=== PATIENT | female | born 1950 | race African-American/Black ===

== ENCOUNTER → 2017-03-05 | Outpatient (CLI) | payer MEDICARE, MEDICAID ==
[2017-03-05 10:56] LABS: ABSOLUTE EOSINOPHILS # (AUTO) 0.1 10^3/uL (0.0-0.6); ABSOLUTE LYMPHOCYTES (AUTO) 1.4 10^3/uL (0.5-4.7); ABSOLUTE MONOCYTES (AUTO) 0.5 10^3/uL (0.1-1.4); BASOPHILS % (AUTO) 0.7 % (0-2); EOSINOPHILS % (AUTO) 2.6 % (0-6); HEMATOCRIT 37.6 % (36.0-47.0); HEMOGLOBIN 11.9 g/dL (12.0-15.5); HGB HCT DIFFERENCE -1.9; LYMPHOCYTES % (AUTO) 28.2 % (13-45); MEAN CORPUSCULAR HEMOGLOBIN 25.4 pg (27.0-33.4); MEAN CORPUSCULAR HGB CONC 31.7 g/dL (32.0-36.0); MEAN CORPUSCULAR VOLUME 80 fl (80-97); MONOCYTES % (AUTO) 9.4 % (3-13); RED BLOOD COUNT 4.68 10^6/uL (3.72-5.28); RED CELL DISTRIBUTION WIDTH 16.7 % (11.5-14.0); SEGMENTED NEUTROPHILS % (AUTO) 59.1 % (42-78); WHITE BLOOD COUNT 5.1 10^3/uL (4.0-10.5)
[2017-03-05 11:16] LABS: ALANINE AMINOTRANSFERASE 33 U/L (9-52); ALBUMIN 3.8 g/dL (3.5-5.0); ALKALINE PHOSPHATASE 82 U/L (38-126); ANION GAP 12 (5-19); ASPARTATE AMINO TRANSFERASE 18 U/L (14-36); BILIRUBIN,DIRECT 0.2 mg/dL (0.0-0.4); BILIRUBIN,TOTAL 0.5 mg/dL (0.2-1.3); BLOOD UREA NITROGEN 22 mg/dL (7-20); CALCIUM 9.5 mg/dL (8.4-10.2); CARBON DIOXIDE 30 mmol/L (22-30); CHLORIDE 103 mmol/L (98-107); CHOLESTEROL 144.36 mg/dL (0-200); CREATININE RESULT 1.19 mg/dL (0.52-1.25); Direct HDL 42 mg/dL (>40); GLUCOSE 106 mg/dL (75-110); MAGNESIUM 2.1 mg/dL (1.6-2.3); POTASSIUM 4.3 mmol/L (3.6-5.0); SODIUM 145.2 mmol/L (137-145); TOTAL PROTEIN 6.8 g/dL (6.3-8.2); TRIGLYCERIDES 88 mg/dL (<150); URIC ACID 7.2 mg/dL (2.5-7.5)
[2017-03-05 11:26] LABS: DIRECT LDL 58 mg/dL (<100)
[2017-03-05 11:31] LABS: FREE T3 3.74 pg/mL (2.77-5.27)
[2017-03-05 11:45] LABS: THYROID STIMULATING HORMONE 1.02 uIU/mL (0.47-4.68)
== END ==
LOC: OD 09:45
PROVIDERS: ATTEND Internal Medicine
DX: R53.82 Chronic fatigue, unspecified (principal); R73.9 Hyperglycemia, unspecified; M10.9 Gout, unspecified; E78.5 Hyperlipidemia, unspecified; G47.33 Obstructive sleep apnea (adult) (pediatric); I12.9 Hypertensive chronic kidney disease with stage 1 through stage 4 chronic kidney disease, or unspecified chronic kidney disease; N18.2 Chronic kidney disease, stage 2 (mild)
CPT/HCPCS: 36415; 80053; 80061; 83036; 83525; 83735; 84439; 84443; 84481; 84550; 85025

== ENCOUNTER → 2017-05-26 | Outpatient (CLI) | payer MEDICARE, MEDICAID ==
[2017-05-26 10:42] LABS: ABSOLUTE BASOPHILS # (AUTO) 0.1 10^3/uL (0.0-0.2); ABSOLUTE EOSINOPHILS # (AUTO) 0.1 10^3/uL (0.0-0.6); ABSOLUTE LYMPHOCYTES (AUTO) 1.4 10^3/uL (0.5-4.7); ABSOLUTE MONOCYTES (AUTO) 0.4 10^3/uL (0.1-1.4); ABSOLUTE NEUT (AUTO) 3.5 10^3/uL (1.7-8.2); EOSINOPHILS % (AUTO) 1.5 % (0-6); HEMATOCRIT 38.1 % (36.0-47.0); HEMOGLOBIN 12.1 g/dL (12.0-15.5); HGB HCT DIFFERENCE -1.8; LYMPHOCYTES % (AUTO) 25.3 % (13-45); MEAN CORPUSCULAR HEMOGLOBIN 25.4 pg (27.0-33.4); MEAN CORPUSCULAR HGB CONC 31.7 g/dL (32.0-36.0); MEAN CORPUSCULAR VOLUME 80 fl (80-97); RED BLOOD COUNT 4.75 10^6/uL (3.72-5.28); RED CELL DISTRIBUTION WIDTH 16.2 % (11.5-14.0); SEGMENTED NEUTROPHILS % (AUTO) 65.2 % (42-78); WHITE BLOOD COUNT 5.4 10^3/uL (4.0-10.5)
[2017-05-26 11:20] LABS: ANION GAP 9 (5-19); BLOOD UREA NITROGEN 21 mg/dL (7-20); CALCIUM 9.4 mg/dL (8.4-10.2); CARBON DIOXIDE 31 mmol/L (22-30); CHLORIDE 103 mmol/L (98-107); CREATININE RESULT 1.11 mg/dL (0.52-1.25); GLUCOSE 102 mg/dL (75-110); POTASSIUM 4.4 mmol/L (3.6-5.0); SODIUM 142.8 mmol/L (137-145)
== END ==
LOC: OD 09:39
PROVIDERS: ATTEND Family Medicine Geriatric Medicine
DX: D64.9 Anemia, unspecified (principal); N18.3 Chronic kidney disease, stage 3 (moderate); Z79.899 Other long term (current) drug therapy
CPT/HCPCS: 36415; 80048; 82306; 82728; 83540; 83550; 84466; 85025

== ENCOUNTER → 2017-07-30 | Outpatient (CLI) | payer MEDICARE, MEDICAID ==
[2017-07-30 12:12] LABS: MAGNESIUM 2.1 mg/dL (1.6-2.3); POTASSIUM 4.4 mmol/L (3.6-5.0)
[2017-07-31 14:41] LABS: HGB A 97.9 % (94.0-98.0); HGB A2 2.1 % (0.7-3.1); HGB SOLUBILITY RESULT Negative (Negative)
== END ==
LOC: OD 10:52
PROVIDERS: ATTEND Family Medicine Geriatric Medicine
DX: D64.9 Anemia, unspecified (principal); E87.6 Hypokalemia; R25.2 Cramp and spasm; Z79.899 Other long term (current) drug therapy
CPT/HCPCS: 36415; 83020; 83735; 84132

== ENCOUNTER → 2017-10-14 | Outpatient (CLI) | payer MEDICARE, MEDICAID ==
--- NOTE | 2017-10-14 17:36 | WOMENS IMAGING REPORT ---
EXAM DESCRIPTION: BILAT SCREENING MAMMO W/CAD COMPLETED DATE/TIME: 10/14/2017 10:59 am REASON FOR STUDY: ROUTINE SCREENING; Z12.31 Z12.31 ENCNTR SCREEN MAMMOGRAM FOR MALIGNANT NEOPLASM O F NHUNG COMPARISON: Multiple since 2010 TECHNIQUE: Standard craniocaudal and mediolateral oblique views of each breast recorded using RRsata l acquisition. LIMITATIONS: None. FINDINGS: RIGHT BREAST MASSES: In the right breast lower inner quadrant 5 to 6 o'clock position 10 cm from the nipple, there are 2 mammographic nodules which require further evaluation with cone compression view, 90 mediolat eral view and ultrasound. CALCIFICATIONS: No new or suspicious calcifications. ARCHITECTURAL DISTORTION: None. DEVELOPING DENSITY: None. ASYMMETRY: None noted. OTHER: No other significant findings. LEFT BREAST MASSES: In the left breast lower inner quadrant, 7 to 8 o'clock position 12 cm from the nipple, a 1 c m mammographic nodule is present with slightly lobular borders. This requires further evaluation wit h cone compression views, 90 mediolateral view and ultrasound CALCIFICATIONS: No new or suspicious calcifications. ARCHITECTURAL DISTORTION: None. DEVELOPING DENSITY: None. ASYMMETRY: None noted. OTHER: No other significant findings. Read with the assistance of CAD. .[facility] - R2 Cenova Version 1.3 .[facility] - R2 Cenova Version 1.3 .[facility] - R2 Cenova Version 2.4 .[facility] [place] - R2 Cenova Version 2.4 .[facility] - R2 Promotion Manager Version 9.2 IMPRESSION: Bilateral mammographic nodules which require further evaluation with bilateral diagnosti c mammograms and bilateral breast ultrasound BREAST DENSITY: b. There are scattered areas of fibroglandular density. BIRAD: 0 Incomplete: Needs Additional Imaging Evaluation and/or prior Mammograms for Comparison. RECOMMENDATION: RECOMMENDED FOLLOW-UP: Bilateral diagnostic mammograms, bilateral breast ultrasound The patient will be contacted for additional imaging. COMMENT: The patient has been notified of the results by letter per SA requirements. Additional no tification policies are in place for contacting patient with suspicious or incomplete findings. Quality ID #225: The [employer] recommends an annual screening mammogram for women aged 40 years or over. This facility utilizes a reminder system to ensure that all patients receive reminder letters, and/or direct phone calls for appointments. This includes reminders for routine scr eening mammograms, diagnostic mammograms, or other Breast Imaging Interventions when appropriate. Th is patient will be placed in the appropriate reminder system. The [employer] (ACR) has developed recommendations for screening MRI of the breast s in certain patient populations, to be used in conjunction with mammography. Breast MRI surveillanc e may be appropriate for women with more than 20% lifetime risk of developing breast cancer as deter mined by genetic testing, significant family history of the disease, or history of mantle radiation f or Hodgkins Disease. ACR Practice Guidelines 2008. TECHNICAL DOCUMENTATION: FINDING NUMBER: (1) ASSESSMENT: (1) JOB ID: [id number] [employer]- All Rights Reserved
== END ==
LOC: WI 10:48
PROVIDERS: ATTEND Family Medicine Geriatric Medicine
DX: Z12.31 Encounter for screening mammogram for malignant neoplasm of breast (principal)
CPT/HCPCS: 77067; G0202

== ENCOUNTER → 2017-11-05 | Outpatient (CLI) | payer MEDICARE, MEDICAID ==
--- NOTE | 2017-11-05 17:48 | WOMENS IMAGING REPORT ---
EXAM DESCRIPTION: BILAT DIAGNOSTIC MAMMO W/CAD; U/S BREAST UNILAT LIMITED COMPLETED DATE/TIME: 11/05/2017 11:42 am; 11/05/2017 1:40 pm REASON FOR STUDY: UNSPECIFIED LUMP; N63.14, N63.24; BILATERAL; N63.14; N63.24 N63.14 UNSPECIFIED LOUANN MP IN THE RIGHT BREAST, LOWER INNER MONIKA; Z12.31 ENCNTR SCREEN MAMMOGRAM FOR MALIGNANT NEOPLASM OF BR E N63.24 UNSPECIFIED LUMP IN THE LEFT BREAST, LOWER INNER QUAD COMPARISON: Multiple previous since 2010 TECHNIQUE: Bilateral cone compression craniocaudal and mediolateral oblique views of each breast rec orded using digital acquisition. Bilateral 90 mediolateral view, bilateral repeat CC views Bilateral breast ultrasound was also performed LIMITATIONS: None. FINDINGS: RIGHT BREAST MASSES: In the right breast 6 o'clock position, a 1.5 cm well-circumscribed low-density nodule presen t about 9 cm from the nipple. This was subsequently shown to represent a simple breast. A second, smaller nodule is present at the 6 o'clock position about 5 cm from the nipple, measuring a bout 1 cm in size. This was shown to represent a complex lesion at ultrasound, and ultrasound-guided core biopsy of this nodule is recommended. CALCIFICATIONS: No new or suspicious calcifications. ARCHITECTURAL DISTORTION: None. DEVELOPING DENSITY: None. ASYMMETRY: None noted. OTHER: No other significant findings. LEFT BREAST MASSES: In the medial left breast about the 8 to 9 o'clock position, 2 mammographic nodules are prese nt, measuring 14 mm and 8 mm in size. These were subsequently demonstrated to be solid nodules at ul trasound. Ultrasound-guided core biopsy of these nodules is recommended. In the left breast retroareolar 6 o'clock position, a dumbbell-shaped nodule is present measuring 14 x 8 mm in size, about 3 cm from the nipple. This was shown to represent a solid nodule and ultrasoun d. Ultrasound-guided core biopsy of this nodule is recommended. CALCIFICATIONS: No new or suspicious calcifications. ARCHITECTURAL DISTORTION: None. DEVELOPING DENSITY: None. ASYMMETRY: None noted. OTHER: No other significant finding. Read with the assistance of CAD: .[facility] - R2 Cenova Version 1.3 .[facility] Imaging - R2 Cenova Version 1.3 .[facility] Imaging - R2 Cenova Version 2.4 .[facility] - R2 Cenova Version 2.4 .[facility] - R2 Beef Killer Version 9.2 Right breast ultrasound: 1.5 cm simple cyst right breast 6 o'clock position 9 cm from the nipple. No further follow-up. There is a 1 cm solid nodule in the right breast 6 o'clock position, 5 cm from the nipple. This conn ects to a dilated duct. Ultrasound-guided core biopsy of this nodule is recommended. Left breast ultrasound: In the medial left breast about the 8 to 9 o'clock position there are two solid sonographic nodules, 14 mm in diameter and 8 mm in diameter. Ultrasound-guided core biopsy of these nodules is recommende d. In the left retro areolar region, a dumbbell-shaped 14 x 8 mm nodule is present at the 6 o'clock posi tion. This has internal color flow. Ultrasound-guided core biopsy of this nodule is recommended. IMPRESSION: Bilateral solid breast nodules which require further evaluation with ultrasound-guided c ore biopsy, post biopsy clip placement and follow-up two-view mammogram. This procedure can be perfo rmed at [facility]. BREAST DENSITY: b. There are scattered areas of fibroglandular density. BIRAD: 4 Suspicious. Biopsy should be considered. RECOMMENDATION: RECOMMENDED FOLLOW UP: Bilateral ultrasound-guided core biopsy, post biopsy clip akua cement with follow-up two-view mammogram is recommended. SPECIFIC INTERVENTION/IMAGING/CONSULTATION RECOMMENDED:As above COMMUNICATION:These results were not directly discussed with the patient. Patient notified by letter COMMENT: The patient has been notified of the results by letter per SA requirements. Additional no tification policies are in place for contacting patient with suspicious or incomplete findings. Quality ID #225: The [employer] recommends an annual screening mammogram for women aged 40 years or over. This facility utilizes a reminder system to ensure that all patients receive reminder letters, and/or direct phone calls for appointments. This includes reminders for routine scr eening mammograms, diagnostic mammograms, or other Breast Imaging Interventions when appropriate. Th is patient will be placed in the appropriate reminder system. The [employer] (ACR) has developed recommendations for screening MRI of the breast s in certain patient populations, to be used in conjunction with mammography. Breast MRI surveillanc e may be appropriate for women with more than 20% lifetime risk of developing breast cancer as deter mined by genetic testing, significant family history of the disease, or history of mantle radiation f or Hodgkins Disease. ACR Practice Guidelines 2008. TECHNICAL DOCUMENTATION: FINDING NUMBER: (1) ASSESSMENT: (1) JOB ID: [id number] [employer]- All Rights Reserved
== END ==
LOC: WI 11:10
PROVIDERS: ATTEND Family Medicine Geriatric Medicine
DX: N63.14 Unspecified lump in the right breast, lower inner quadrant (principal); N63.24 Unspecified lump in the left breast, lower inner quadrant
CPT/HCPCS: 77066

== ENCOUNTER → 2017-12-29 | Outpatient (CLI) | payer MEDICARE, MEDICAID ==
[2017-12-30 13:52] LABS: ANGIOTENSIN-CONVERTING ENZYME 37 U/L (14-82)
== END ==
LOC: OD 11:05
PROVIDERS: ATTEND Ophthalmology
DX: H47.10 Unspecified papilledema (principal)
CPT/HCPCS: 36415; 82164; 86038; 86480; 86592

== ENCOUNTER → 2017-12-30 | Day surgery (SDC) | payer MEDICARE, MEDICAID ==
[~2017-12-30] MED LIST: ACETAMINOPHEN 0 ML IV ONE; ALBUTEROL SULFATE 0.083% NEB 2.5 MG/3 ML AMPUL NEB ONE; CEFAZOLIN 1 GM/D5W RTU 1 GM/50 ML RTUPB IV PRN; FENTANYL CITRATE INJ/PF 100 MCG/2 ML AMPUL ONE; KETAMINE HCL INJ 500 MG/10 ML VIAL ONE; LIDOCAINE 1%/EPINEPHRINE INJ 20 ML VIAL ONE; MICROFIBRILLAR COLLAGEN 1 GM PACK ONE; MIDAZOLAM 2 MG/2 ML INJ ONE; NORMAL SALINE 1000 ML 1,000 ML IV PRN; PROPOFOL INJ 200 MG/20 ML VIAL IV ONE
[2017-12-30 08:18] LABS: HEMOGLOBIN 12.2 g/dL (12.0-15.5); MEAN CORPUSCULAR HEMOGLOBIN 25.2 pg (27.0-33.4); MEAN CORPUSCULAR HGB CONC 31.3 g/dL (32.0-36.0); MEAN CORPUSCULAR VOLUME 81 fl (80-97); PLATELET COUNT 193 10^3/uL (150-450); RED BLOOD COUNT 4.84 10^6/uL (3.72-5.28); RED CELL DISTRIBUTION WIDTH 16.4 % (11.5-14.0); WHITE BLOOD COUNT 5.3 10^3/uL (4.0-10.5)
[2017-12-30 08:46] LABS: ANION GAP 9 (5-19); BLOOD UREA NITROGEN 22 mg/dL (7-20); CALCIUM 10.2 mg/dL (8.4-10.2); CARBON DIOXIDE 31 mmol/L (22-30); CHLORIDE 106 mmol/L (98-107); GLUCOSE 124 mg/dL (75-110); SODIUM 145.6 mmol/L (137-145)
--- NOTE | 2017-12-30 09:03 | EKG REPORT ---
SEVERITY:- ABNORMAL ECG - SINUS RHYTHM ATRIAL PREMATURE COMPLEX RIGHT BUNDLE BRANCH BLOCK : Confirmed by: Mechelle Jaeger 30-Dec-2017 09:01:43
--- NOTE | 2017-12-30 10:42 | RADIOLOGY REPORT (SQ) ---
EXAM DESCRIPTION: CHEST SINGLE VIEW COMPLETED DATE/TIME: 12/30/2017 10:18 am REASON FOR STUDY: PREOP COMPARISON: 09/03/2016. EXAM PARAMETERS: NUMBER OF VIEWS: One view. TECHNIQUE: Single frontal radiographic view of the chest acquired. RADIATION DOSE: NA LIMITATIONS: None. FINDINGS: LUNGS AND PLEURA: No opacities, masses or pneumothorax. No pleural effusion. MEDIASTINUM AND HILAR STRUCTURES: No masses. Contour normal. HEART AND VASCULAR STRUCTURES: Heart upper limits of normal in size. Normal vasculature. BONES: No acute findings. HARDWARE: None in the chest. OTHER: No other significant finding. IMPRESSION: NO ACUTE RADIOGRAPHIC FINDING IN THE CHEST. TECHNICAL DOCUMENTATION: JOB ID: [id number] [email or web address]- All Rights Reserved Reading location - IP/workstation name: [email or web address]
--- NOTE | 2017-12-30 10:56 | Pulmonary Function Test ---
Pulmonary Function Test Date of Procedure:: 12/30/17 INDICATION:: dyspnea Referring Provider: Dr. Gottlieb - Report Spirometry: FVC 1.63 L 52% FEV! 1.24 L 54% FEV1/FVC%76 [id number] %1.02 41% Impression: Moderate obstructive disease (with slight decline since 2015)Implied moderate restrictive defect that may mask the degree of obstruction.Restrictive derects should not be based on spirometry alone.Patient is also noted to have a moderate decreas in diffusion capacity in JUL 28 2016
--- NOTE | 2017-12-30 11:35 | XCELERA REPORT ---
[address] [address] Transthoracic Echocardiogram Report Name: QUEEN José TRUONG Age: 67 yrs Gender: Female : 1950 Patient Status: Outpatient [facility] Study Date: 12/30/2017 10:08 AM Height: 65 in Weight: 311 lb BSA: 2.4 m2 Procedure: A limited two-dimensional transthoracic echocardiogram was performed (2D). The study was technically adequate with some images being suboptimal in quality. Reason For Study: Pre Op Ordering Physician: JUDI DORSEY Performed By: Marina Tran Interpretation Summary The left ventricular ejection fraction is normal. There is mild concentric left ventricular hypertrophy. Doppler measurements suggest pseudonormalized left ventricular relaxation, which is associated with grade II/IV or mild to moderate diastolic dysfunction The left ventricle is grossly normal size. No regional wall motion abnormalities noted. The right ventricle is mildly dilated. The right ventricular systolic function is normal. The right atrium is normal in size The left atrium is mildly dilated. There is a trace amount of mitral regurgitation There is no mitral valve stenosis. There is no aortic valve stenosis No aortic regurgitation is present. There is a trace to mild amount of tricuspid regurgitation There is mild pulmonary hypertension by echo Right ventricular systolic pressure is estimated to be elevated at 30- 40mmHg. Minimal pericardial effusion. MMode/2D Measurements & Calculations RVDd: 3.6 cm LVIDd: 5.9 cmFS: 46.8 % Ao root diam: 3.7 cm IVSd: 1.1 cm LVIDs: 3.2 cmEDV(Teich): 175.5 ml LVPWd: 1.1 cmESV(Teich): 39.7 ml Ao root area: 10.5 cm2 EF(Teich): 77.4 % LA dimension: 3.9 cm LVOT diam: 2.4 cm LVOT area: 4.7 cm2 Doppler Measurements & Calculations MV E max leanna: MV P1/2t max leanna: Ao V2 max: LV V1 max P.6 cm/sec 112.0 cm/sec 248.5 cm/sec 12.7 mmHg MV A max leanna: MV P1/2t: 63.8 msec Ao max PG: LV V1 max: 117.5 cm/sec MVA(P1/2t): 3.5 cm2 24.7 mmHg 178.3 cm/sec MV E/A: 0.95 MV dec slope: ARMIDA(V,D): 3.4 cm2 514.8 cm/sec2 PA V2 max: TR max leanna: 99.2 cm/sec 269.1 cm/sec PA max PG: TR max P.0 mmHg 3.9 mmHg Left Ventricle The left ventricle is grossly normal size. There is mild concentric left ventricular hypertrophy. The left ventricular ejection fraction is normal. Doppler measurements suggest pseudonormalized left ventricular relaxation, which is associated with grade II/IV or mild to moderate diastolic dysfunction. No regional wall motion abnormalities noted. Right Ventricle The right ventricle is mildly dilated. There is normal right ventricular wall thickness. The right ventricular systolic function is normal. Atria The right atrium is normal in size. The left atrium is mildly dilated. Interarterial septum not well visualized and not well dopplered. Cannot comment on ASD/PFO presence. Mitral Valve The mitral valve leaflets are sclerotic, but show no functional abnormalities. There is no mitral valve stenosis. There is a trace amount of mitral regurgitation. Aortic Valve The aortic valve is grossly normal. There is no aortic valve stenosis. No aortic regurgitation is present. Tricuspid Valve The tricuspid valve is not well visualized secondary to technical limitations. There is no tricuspid stenosis. There is a trace to mild amount of tricuspid regurgitation. There is mild pulmonary hypertension by echo. Right ventricular systolic pressure is estimated to be elevated at 30-40mmHg. Pulmonic Valve The pulmonic valve is not well visualized. Great Vessels The aortic root is not well visualized but is probably normal size. The inferior vena cava was not well visualized. Effusions Minimal pericardial effusion. : JUDI DORSEY > Mechelle Jaeger
[2017-12-30 12:10] VITALS: BP 156/88
== END ==
LOC: OROUT 07:30
PROVIDERS: ATTEND Surgery
DX: Z01.818 Encounter for other preprocedural examination (principal); R06.00 Dyspnea, unspecified; R94.31 Abnormal electrocardiogram [ECG] [EKG]
CPT/HCPCS: 36415; 71045; 80048; 85027; 93005; 93010; 93306; 94010; J0131; J0690; J2250; J2704; J3010; J3490

== ENCOUNTER → 2018-01-06 | Day surgery (SDC) | payer MEDICARE, MEDICAID | LOC: RAD 07:59 | PROVIDERS: ATTEND Internal Medicine | DX: R69 Illness, unspecified (principal) ==

== ENCOUNTER 2018-01-14 08:11 | Day surgery (SDC) | payer MEDICARE, MEDICAID ==
[2018-01-14] MEDS ORDERED: LIDOCAINE 1% INJ-PF (10 MG/ML) 30 ML SDV ONE (09:09)
[2018-01-14 09:29] LABS: PROTHROMBIN TIME 12.8 SEC (11.4-15.4)
[2018-01-14 09:30] LABS: PARTIAL THROMBOPLASTIN TIME 30.5 SEC (23.5-35.8)
--- NOTE | 2018-01-14 11:03 | RADIOLOGY REPORT (SQ) ---
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 TECHNIQUE: Fluoroscopic guided lumbar puncture. LIMITATIONS: None. PROCEDURE: After written consent and assessment were obtained, the patient was brought into the fluo roscopy room and placed prone on the table. The patient's lower back was prepped in a sterile fashio n and an entry site was selected under live fluoroscopic guidance. The entry site was anesthetized wi th 5 mL of 1% lidocaine. A long 22 gauge spinal needle was advanced through the skin and into the the siena sac at the right paracentral L1-2 level. After approximately 12 ml was drained, the needle was r emoved and a sterile bandage was placed of the site. Specimens were sent to the lab for testing. A fluoroscopic spot image was saved to PACS confirming level access. FINDINGS: Clear cerebrospinal fluid. Opening pressure 35 cm of water. Closing pressure [address] IMPRESSION: Lumbar puncture under fluoroscopy. Elevated opening pressures could correlate with pseu dotumor cerebri COMMENT: Patient medication list reviewed: Yes- Quality ID# 130:Eligible professional attests to doc umenting in the medical record they obtained, updated, or reviewed the patient's current medications. . Quality ID 145: Final reports for procedures using fluoroscopy that document radiation exposure samantha noemy, or exposure time and number of fluorographic images (if radiation exposure indices are not avail able) TECHNICAL DOCUMENTATION: JOB ID: [id number] [employer]- All Rights Reserved Reading location - IP/workstation name: [facility]-[email or web address]
--- NOTE | 2018-01-14 11:03 | RADIOLOGY REPORT (SQ) ---
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 TECHNIQUE: Fluoroscopic guided lumbar puncture. LIMITATIONS: None. PROCEDURE: After written consent and assessment were obtained, the patient was brought into the fluo roscopy room and placed prone on the table. The patient's lower back was prepped in a sterile fashio n and an entry site was selected under live fluoroscopic guidance. The entry site was anesthetized wi th 5 mL of 1% lidocaine. A long 22 gauge spinal needle was advanced through the skin and into the the siena sac at the right paracentral L1-2 level. After approximately 12 ml was drained, the needle was r emoved and a sterile bandage was placed of the site. Specimens were sent to the lab for testing. A fluoroscopic spot image was saved to PACS confirming level access. FINDINGS: Clear cerebrospinal fluid. Opening pressure 35 cm of water. Closing pressure [address] IMPRESSION: Lumbar puncture under fluoroscopy. Elevated opening pressures could correlate with pseu dotumor cerebri COMMENT: Patient medication list reviewed: Yes- Quality ID# 130:Eligible professional attests to doc umenting in the medical record they obtained, updated, or reviewed the patient's current medications. . Quality ID 145: Final reports for procedures using fluoroscopy that document radiation exposure samantha noemy, or exposure time and number of fluorographic images (if radiation exposure indices are not avail able) TECHNICAL DOCUMENTATION: JOB ID: [id number] [employer] All Rights Reserved Reading location - IP/workstation name: [email or web address]
[2018-01-14 11:21] LABS: APPEARANCE ALL TUBES CLEAR; COLOR ALL TUBES COLORLESS; CSF TUBE NUMBER 3; RED BLOOD CELL,CSF 0 /uL (0-10); WHITE BLOOD CELL,CSF 1 /uL (0-5)
[2018-01-14 11:34] LABS: GLUCOSE,CSF 67 mg/dL (40-70); PROTEIN,CSF 48 mg/dL (12-60)
[2018-01-14 16:26] VITALS: BP 121/80
== END 2018-01-14 13:45 | disposition home or self-care (01) ==
LOC: RAD 08:11
PROVIDERS: ATTEND Internal Medicine
DX: H47.093 Other disorders of optic nerve, not elsewhere classified, bilateral (principal); Z79.01 Long term (current) use of anticoagulants; Z88.2 Allergy status to sulfonamides
CPT/HCPCS: 36415; 87070; 87205; 84132; 85610; 85730; 89050; 82945; 84157; 88162; 77003; 62270; J3490

== ENCOUNTER → 2018-03-01 | Outpatient (CLI) | payer MEDICARE, MEDICAID ==
[2018-03-01 10:37] LABS: ABSOLUTE BASOPHILS # (AUTO) 0.1 10^3/uL (0.0-0.2); ABSOLUTE EOSINOPHILS # (AUTO) 0.1 10^3/uL (0.0-0.6); ABSOLUTE LYMPHOCYTES (AUTO) 1.2 10^3/uL (0.5-4.7); ABSOLUTE MONOCYTES (AUTO) 0.5 10^3/uL (0.1-1.4); ABSOLUTE NEUT (AUTO) 3.2 10^3/uL (1.7-8.2); BASOPHILS % (AUTO) 1.3 % (0-2); EOSINOPHILS % (AUTO) 1.7 % (0-6); HEMATOCRIT 38.3 % (36.0-47.0); HEMOGLOBIN 11.9 g/dL (12.0-15.5); LYMPHOCYTES % (AUTO) 23.6 % (13-45); MEAN CORPUSCULAR HEMOGLOBIN 25.2 pg (27.0-33.4); MEAN CORPUSCULAR HGB CONC 31.1 g/dL (32.0-36.0); MEAN CORPUSCULAR VOLUME 81 fl (80-97); MONOCYTES % (AUTO) 9.8 % (3-13); PLATELET COUNT 220 10^3/uL (150-450); RED BLOOD COUNT 4.73 10^6/uL (3.72-5.28); RED CELL DISTRIBUTION WIDTH 17.1 % (11.5-14.0); SEGMENTED NEUTROPHILS % (AUTO) 63.6 % (42-78); TOTAL CELLS COUNTED % (AUTO) 100 %
[2018-03-01 11:02] LABS: ANION GAP 11 (5-19); BLOOD UREA NITROGEN 20 mg/dL (7-20); CALCIUM 9.6 mg/dL (8.4-10.2); CARBON DIOXIDE 28 mmol/L (22-30); CHLORIDE 110 mmol/L (98-107); GLUCOSE 118 mg/dL (75-110); SODIUM 148.6 mmol/L (137-145); URIC ACID 6.3 mg/dL (2.5-7.5)
--- NOTE | 2018-03-02 16:58 | RADIOLOGY REPORT (SQ) ---
EXAM DESCRIPTION: CT CHEST WITHOUT COMPLETED DATE/TIME: 03/01/2018 10:19 am REASON FOR STUDY: DYSPNEA (R06.00) R06.00 DYSPNEA, UNSPECIFIED COMPARISON: None. TECHNIQUE: CT scan performed of the chest without intravenous contrast. Images reviewed with lung, soft tissue and bone windows. Reconstructed coronal and sagittal MPR images reviewed. All images st ored on PACS. All CT scanners at this facility use dose modulation, iterative reconstruction, and/or weight based d osing when appropriate to reduce radiation dose to as low as reasonably achievable (ALARA). [facility]: Dose Right [facility]: CareDose [facility]: Dose Right [facility]: Teradose 4D [facility]: Xignite RADIATION DOSE: Total Exam DLP: 800.02. LIMITATIONS: Motion artifact limits the examination. FINDINGS: LUNGS AND PLEURA: Mild linear scar or atelectasis/infiltrates in the lower lobes. No pne umothorax or pleural effusion. The central airways are clear. HILAR AND MEDIASTINAL STRUCTURES: No identified masses or abnormal nodes. No obvious aneurysm. HEART AND VASCULAR STRUCTURES: No aneurysm. No pericardial effusion. UPPER ABDOMEN: Atherosclerotic changes involving the visualized abdominal aorta which is tortuous in appearance. Splenule, normal anatomic variant. Limited exam. THYROID AND OTHER SOFT TISSUES: The visualized thyroid gland is prominent and heterogenous in appear ance. There is slight narrowing of the trachea suggested by the enlarged thyroid gland. Mildly prominent left axillary lymph node with a hilus of fat likely on a benign reactive basis. Thi s finding probably correlates to the mammogram examination dated 10/14/2017. BONES: No significant finding. HARDWARE: None in the chest. OTHER: The nodule in the lower medial left breast best noted on image 13, series 601, probably corre lates with the mammogram examination dated 10/14/2017. IMPRESSION: 1 Motion artifact limits the examination. 2. Mild atelectasis/infiltrates or scar in the lower lobes bilaterally. 3. The visualized thyroid gland is prominent and heterogenous in appearance. Correlation is suggeste d and further evaluation with thyroid ultrasound, lab values suggested. TECHNICAL DOCUMENTATION: JOB ID: [id number] Quality ID # 436: Final reports with documentation of one or more dose reduction techniques (e.g., Au tomated exposure control, adjustment of the mA and/or kV according to patient size, use of iterative reconstruction technique) 2010 [employer]- All Rights Reserved Reading location - IP/workstation name: [email or web address]
== END ==
LOC: RAD 09:55
PROVIDERS: ATTEND Physician Assistant
DX: I10 Essential (primary) hypertension (principal); E66.9 Obesity, unspecified; M10.9 Gout, unspecified; R06.00 Dyspnea, unspecified; Z79.899 Other long term (current) drug therapy
CPT/HCPCS: 36415; 71250; 80048; 84443; 84550; 85025

== ENCOUNTER → 2018-03-09 | Outpatient (CLI) | payer MEDICARE, MEDICAID | LOC: OD 11:32 | PROVIDERS: ATTEND Family Medicine Geriatric Medicine | DX: R73.9 Hyperglycemia, unspecified (principal) | CPT/HCPCS: 36415; 82947; 82950; 83036 ==

== ENCOUNTER → 2018-03-29 | Outpatient (CLI) | payer MEDICARE, MEDICAID ==
--- NOTE | 2018-03-29 13:32 | WOMENS IMAGING REPORT ---
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 TECHNIQUE: Dynamic and static najera-scale images acquired of the thyroid gland. Selected additional c olor/power Doppler images recorded. All images stored to PACS. LIMITATIONS: None. FINDINGS: RIGHT LOBE: The right lobe of the thyroid gland measures 5.1 x 2.3 x 2.8 cm, normal size. Heterogenous echotexture. Several nodules are identified which are solid and complex solid in appe arance. Two of the largest measure 1.1 x 0.8 cm and 1.3 x 0.8 cm. LEFT LOBE: The left lobe of the thyroid gland measures 5.4 x 2.6 x 3.4 cm, normal size. Heterogenou s echotexture Homogeneous echotexture. Several solid and complex solid nodules are identified. One of the largest measures 2.2 cm and is located in the lower pole. ISTHMUS: The isthmus measures 1.2 cm in AP diameter and is prominent in size. Heterogenous echotext ure. Small subcentimeter hypoechoic nodules. OTHER: No other significant finding. IMPRESSION: 1 Multinodular heterogenous appearing thyroid gland. TECHNICAL DOCUMENTATION: JOB ID: [id number] [employer]- All Rights Reserved Reading location - IP/workstation name: [email or web address]
== END ==
LOC: WI 09:53
PROVIDERS: ATTEND Family Medicine Geriatric Medicine
DX: E01.0 Iodine-deficiency related diffuse (endemic) goiter (principal)
CPT/HCPCS: 76536

== ENCOUNTER → 2018-05-17 | Outpatient (CLI) | payer MEDICARE, MEDICAID ==
[2018-05-17 12:40] LABS: ABSOLUTE MONOCYTES (AUTO) 0.4 10^3/uL (0.1-1.4); ABSOLUTE NEUT (AUTO) 2.5 10^3/uL (1.7-8.2); BASOPHILS % (AUTO) 0.9 % (0-2); EOSINOPHILS % (AUTO) 0.9 % (0-6); HEMATOCRIT 38.3 % (36.0-47.0); HEMOGLOBIN 12.1 g/dL (12.0-15.5); LYMPHOCYTES % (AUTO) 25.4 % (13-45); MEAN CORPUSCULAR HEMOGLOBIN 25.4 pg (27.0-33.4); MEAN CORPUSCULAR HGB CONC 31.5 g/dL (32.0-36.0); MEAN CORPUSCULAR VOLUME 81 fl (80-97); PLATELET COUNT 214 10^3/uL (150-450); RED BLOOD COUNT 4.75 10^6/uL (3.72-5.28); RED CELL DISTRIBUTION WIDTH 15.3 % (11.5-14.0); SEGMENTED NEUTROPHILS % (AUTO) 63.8 % (42-78); TOTAL CELLS COUNTED % (AUTO) 100 %; WHITE BLOOD COUNT 3.9 10^3/uL (4.0-10.5)
[2018-05-17 12:42] LABS: APPEARANCE,URINE CLEAR; BILIRUBIN,URINE NEGATIVE (NEGATIVE); COLOR,URINE YELLOW; GLUCOSE, URINE NEGATIVE (NEGATIVE); KETONES,URINE NEGATIVE (NEGATIVE); LEUKOCYTE ESTERASE,URINE SMALL (NEGATIVE); NITRITE,URINE NEGATIVE (NEGATIVE); PROTEIN,URINE 30 mg/dL (NEGATIVE); URINE SPECIFIC GRAVITY 1.018
[2018-05-17 13:48] LABS: ALANINE AMINOTRANSFERASE 23 U/L (9-52); ALBUMIN 3.9 g/dL (3.5-5.0); ALKALINE PHOSPHATASE 76 U/L (38-126); ANION GAP 11 (5-19); ASPARTATE AMINO TRANSFERASE 16 U/L (14-36); BILIRUBIN,DIRECT 0.2 mg/dL (0.0-0.4); BILIRUBIN,TOTAL 0.4 mg/dL (0.2-1.3); BLOOD UREA NITROGEN 18 mg/dL (7-20); CALCIUM 9.6 mg/dL (8.4-10.2); CARBON DIOXIDE 27 mmol/L (22-30); CHLORIDE 110 mmol/L (98-107); GLUCOSE 92 mg/dL (75-110); SODIUM 147.8 mmol/L (137-145)
== END ==
LOC: OD 11:10
PROVIDERS: ATTEND Internal Medicine Nephrology
DX: I12.9 Hypertensive chronic kidney disease with stage 1 through stage 4 chronic kidney disease, or unspecified chronic kidney disease (principal); N18.3 Chronic kidney disease, stage 3 (moderate); R80.9 Proteinuria, unspecified; J44.9 Chronic obstructive pulmonary disease, unspecified
CPT/HCPCS: 36415; 80053; 81001; 82306; 83735; 84443; 85025

== ENCOUNTER → 2018-06-29 | Outpatient (CLI) | payer MEDICARE, MEDICAID | LOC: OD 12:09 | PROVIDERS: ATTEND Physician Assistant | DX: Z53.9 Procedure and treatment not carried out, unspecified reason (principal) ==

== ENCOUNTER → 2018-08-16 | Outpatient (CLI) | payer MEDICARE, MEDICAID ==
[2018-08-16 11:33] LABS: APPEARANCE,URINE CLEAR; BILIRUBIN,URINE NEGATIVE (NEGATIVE); COLOR,URINE YELLOW; GLUCOSE, URINE NEGATIVE (NEGATIVE); KETONES,URINE NEGATIVE (NEGATIVE); LEUKOCYTE ESTERASE,URINE TRACE (NEGATIVE); NITRITE,URINE NEGATIVE (NEGATIVE); PROTEIN,URINE 30 mg/dL (NEGATIVE)
[2018-08-16 11:33] LABS: HEMATOCRIT 37.8 % (36.0-47.0); MEAN CORPUSCULAR HEMOGLOBIN 25.9 pg (27.0-33.4); MEAN CORPUSCULAR HGB CONC 31.7 g/dL (32.0-36.0); MEAN CORPUSCULAR VOLUME 82 fl (80-97); PLATELET COUNT 193 10^3/uL (150-450); RED BLOOD COUNT 4.64 10^6/uL (3.72-5.28); RED CELL DISTRIBUTION WIDTH 15.7 % (11.5-14.0); WHITE BLOOD COUNT 5.3 10^3/uL (4.0-10.5)
[2018-08-16 11:50] LABS: UR PRO/CREAT RATIO RESULT 0.1 mg/mg (0.0-0.2); URINE CREATININE 156.5 mg/dL (15-278)
[2018-08-16 12:01] LABS: ANION GAP 8 (5-19); BLOOD UREA NITROGEN 22 mg/dL (7-20); CALCIUM 9.2 mg/dL (8.4-10.2); CARBON DIOXIDE 26 mmol/L (22-30); CHLORIDE 109 mmol/L (98-107); GLUCOSE 102 mg/dL (75-110); POTASSIUM 4.4 mmol/L (3.6-5.0); SODIUM 143.1 mmol/L (137-145)
== END ==
LOC: OD 10:22
PROVIDERS: ATTEND Internal Medicine Nephrology
DX: R80.9 Proteinuria, unspecified (principal); I50.9 Heart failure, unspecified; I11.0 Hypertensive heart disease with heart failure
CPT/HCPCS: 36415; 80048; 81001; 82570; 84156; 85027

== ENCOUNTER → 2018-10-05 | Outpatient (CLI) | payer MEDICARE, MEDICAID ==
[2018-10-05 13:08] LABS: BLOOD UREA NITROGEN 24 mg/dL (7-20); CALCIUM 9.7 mg/dL (8.4-10.2); CARBON DIOXIDE 27 mmol/L (22-30); GLUCOSE 108 mg/dL (75-110); POTASSIUM 4.1 mmol/L (3.6-5.0); SODIUM 146.7 mmol/L (137-145)
[2018-10-05 13:11] LABS: ANION GAP 11 (5-19); CHLORIDE 109 mmol/L (98-107)
== END ==
LOC: OD 11:33
PROVIDERS: ATTEND Internal Medicine Nephrology
DX: I12.9 Hypertensive chronic kidney disease with stage 1 through stage 4 chronic kidney disease, or unspecified chronic kidney disease (principal); N18.9 Chronic kidney disease, unspecified; R80.9 Proteinuria, unspecified; E50.9 Vitamin A deficiency, unspecified; I50.9 Heart failure, unspecified
CPT/HCPCS: 36415; 80048

== ENCOUNTER 2018-10-07 07:05 | Day surgery (SDC) | payer MEDICARE, MEDICAID ==
[~2018-10-07 07:05] MED LIST changes: -ACETAMINOPHEN 0 ML IV ONE; -ALBUTEROL SULFATE 0.083% NEB 2.5 MG/3 ML AMPUL NEB ONE; -CEFAZOLIN 1 GM/D5W RTU 1 GM/50 ML RTUPB IV PRN; -FENTANYL CITRATE INJ/PF 100 MCG/2 ML AMPUL ONE; -KETAMINE HCL INJ 500 MG/10 ML VIAL ONE; +KETOROLAC TROMETHAMINE 0.45% 4 DROP/0.4 ML DROPERETTE OD PRN; -LIDOCAINE 1%/EPINEPHRINE INJ 20 ML VIAL ONE; -MICROFIBRILLAR COLLAGEN 1 GM PACK ONE; -MIDAZOLAM 2 MG/2 ML INJ ONE; -NORMAL SALINE 1000 ML 1,000 ML IV PRN; -PROPOFOL INJ 200 MG/20 ML VIAL IV ONE
[2018-10-07] MEDS ORDERED: CHONDR SU A NA/HYALUR INTRAOC KIT (SURGICARE) ONE (07:09)
[2018-10-07] MEDS ORDERED: LIDOCAINE 1% INJ-PF (10 MG/ML) 30 ML SDV ONE (07:09)
[2018-10-07] MEDS ORDERED: EPINEPHRINE INJ/PF 1 MG/1 ML AMPULE ONE (07:09)
[2018-10-07] MEDS: TETRACAINE HCL 0.5% OPH SOLN 4 ML OD PRN ×3 (07:29→08:00)
[2018-10-07] MEDS: TROPICAMIDE 1% OPH SOLN 3 ML OD PRN ×3 (07:30→07:53)
[2018-10-07] MEDS: BESIFLOXACIN HCL 0.6% OPH SUSP 5 ML BOTTLE OD PRN ×4 (07:30→08:30)
[2018-10-07] MEDS: CYCLOPENTOLATE 0.2%/PHENYLEPHRINE 1% OPH SOLN 2 ML OD PRN ×3 (07:30→07:53)
[2018-10-07] MEDS ORDERED: MIDAZOLAM 2 MG/2 ML INJ ONE (07:38)
[2018-10-07] MEDS ORDERED: FENTANYL CITRATE INJ/PF 100 MCG/2 ML AMPUL ONE (08:12)
[2018-10-07] MEDS: TRYPAN BLUE 0.06 % OPH SOLN 0.5 ML DISP.SYRIN ONE ×2 (08:12→08:18)
[2018-10-07] MEDS ORDERED: LIDOCAINE 1%/PHENYLEPHRINE 1.5% 1 ML VIAL ONE (08:17)
--- NOTE | 2018-10-08 07:47 | [facility] OPERATIVE REPORT E ---
[facility] Operative Report NAME: QUEEN TRUONG AGE: 67Y DATE OF SURGERY: 10/07/2018 ROOM: PREOPERATIVE DIAGNOSIS: OTHER AGE-RELATED CATARACT, LEFT EYE. POSTOPERATIVE DIAGNOSIS: OTHER AGE-RELATED CATARACT, LEFT EYE. OPERATION: Complex cataract extraction with use of Trypan Blue dye, left eye. SURGEON: JOSE RAUL CABALLERO M.D. ANESTHESIA: Topical. PROCEDURE: After obtaining appropriate consent, the patient's left eye was prepped and draped in sterile fashion as well as the surgeon in a sterile manner and cataract surgery was started. First a paracentesis blade was used to make a side-port incision. Viscoelastic was used to inflate the anterior chamber. Next a 2.4 mm incision was made with a 2.4 mm blade, clear corneal temporally. A continuous capsulorrhexis was made using a cystotome and Utrata forceps. Following this hydrodissection was carried out to make the lens fully loose and mobile and it was rotated 90 degrees. Following this, a xgbxwl-mcm-rsqkpja technique was used to phacoemulsify the lens with a CDE of 6.84. The remaining cortex was removed with irrigation/aspiration. Provisc was instilled into the capsular bag to inflate the bag. A SN60WF, 17.5 diopter lens was placed. The remaining viscoelastic material was removed with irrigation/aspiration. Following this, the incision was found to be watertight. Besivance was instilled into the eye and a protective shield was placed over the eye. The patient returned to the postoperative recovery in stable condition. Prior to making the capsulorrhexis Trypan Blue dye was used to stain the anterior capsule due to dense cortical spoking. DICTATING PHYSICIAN: JOSE RAUL CABALLERO M.D. [id number] PHY#: [id number] 1947 ID: [id number] JOB#: [id number] ACCT: [id number] cc:JOSE RAUL CABALLERO M.D. >
--- NOTE | 2018-10-08 07:52 | SURGICARE DISCHARGE SUMMARY E ---
[facility] Discharge Summary NAME: QUEEN TRUONG AGE: 67Y ADMITTED: 10/07/2018 DISCHARGED: 10/07/2018 DIAGNOSIS: OTHER AGE-RELATED CATARACT, LEFT EYE. SUMMARY: This is a 67-year-old patient who underwent complex cataract extraction, left eye. The patient underwent surgery because she was having difficulty seeing things around the house and trouble to cook. DISCHARGE INSTRUCTIONS: She should be on a regular diet, no bending at her waist, and no heavy lifting. She should use her Vigamox, Ilevro, and Durezol at 3 p.m. and 8 p.m. and sleep with a rigid shield. I will see her for her 1-day postoperative tomorrow. DICTATING PHYSICIAN: JOSE RAUL CABALLERO M.D. [id number] PHY#: [id number] ID: [id number] JOB#: [id number] ACCT: [id number] cc:JOSE RAUL CABALLERO M.D. >
== END 2018-10-07 09:38 | disposition home or self-care (01) ==
LOC: SC 07:05
PROVIDERS: ATTEND Internal Medicine
DX: H25.89 Other age-related cataract (principal); H25.811 Combined forms of age-related cataract, right eye; H40.1132 Primary open-angle glaucoma, bilateral, moderate stage; H47.093 Other disorders of optic nerve, not elsewhere classified, bilateral; H20.022 Recurrent acute iridocyclitis, left eye; J44.9 Chronic obstructive pulmonary disease, unspecified; M19.90 Unspecified osteoarthritis, unspecified site; Z88.2 Allergy status to sulfonamides; Z87.891 Personal history of nicotine dependence; Z79.899 Other long term (current) drug therapy; M10.9 Gout, unspecified; G62.9 Polyneuropathy, unspecified; G47.30 Sleep apnea, unspecified; R01.1 Cardiac murmur, unspecified; E11.22 Type 2 diabetes mellitus with diabetic chronic kidney disease; I12.9 Hypertensive chronic kidney disease with stage 1 through stage 4 chronic kidney disease, or unspecified chronic kidney disease; N18.3 Chronic kidney disease, stage 3 (moderate)
CPT/HCPCS: 66982; V2632; J2250; J3490 ×4; A9270; J0171; J3010; J2370

== ENCOUNTER → 2018-10-15 | Outpatient (CLI) | payer MEDICARE, MEDICAID | LOC: OD 10:23 | PROVIDERS: ATTEND Internal Medicine | DX: E11.8 Type 2 diabetes mellitus with unspecified complications (principal); M10.9 Gout, unspecified | CPT/HCPCS: 36415; 83036; 84550 ==

== ENCOUNTER → 2018-12-15 | Outpatient (CLI) | payer MEDICARE, MEDICAID ==
--- NOTE | 2018-12-15 11:30 | WOMENS IMAGING REPORT ---
EXAM DESCRIPTION: BILAT SCREENING MAMMO W/CAD COMPLETED DATE/TIME: 12/15/2018 11:18 am REASON FOR STUDY: Z12.31 SCREENING MAMMO Z12.31 ENCNTR SCREEN MAMMOGRAM FOR MALIGNANT NEOPLASM OF B RE COMPARISON: [id number] TECHNIQUE: Standard craniocaudal and mediolateral oblique views of each breast recorded using [employer] acquisition. LIMITATIONS: None. FINDINGS: Findings present which are benign by mammographic criteria. No suspicious masses, calcifi cations or architectural distortion. Pertinent benign findings: Fibrocystic change. Benign biopsy left. Read with the assistance of CAD. .[facility] - R2 Cenova Version 1.3 .[facility] Imaging - R2 Cenova Version 2.1 .[facility] - R2 Cenova Version 2.4 .[facility] [place] R2 Cenova Version 2.4 .[facility] - R2 [employer] Version 9.2 Benign mammographic findings may include one or more of the following: Smooth masses, popcorn/rim/co arse calcifications, asymmetries, post-procedure changes, and lesions with long-standing stability. IMPRESSION: BENIGN MAMMOGRAPHIC FINDINGS. BIRADS 2 BREAST DENSITY: b. There are scattered areas of fibroglandular density. BIRAD: 2 BENIGN FINDING(S) RECOMMENDATION: ROUTINE SCREENING COMMENT: The patient has been notified of the results by letter per SA requirements. Additional no tification policies are in place for contacting patient with suspicious or incomplete findings. Quality ID #[id number]: The [employer] recommends an annual screening mammogram for women aged 40 years or over. This facility utilizes a reminder system to ensure that all patients receive reminder letters, and/or direct phone calls for appointments. This includes reminders for routine scr eening mammograms, diagnostic mammograms, or other Breast Imaging Interventions when appropriate. Th is patient will be placed in the appropriate reminder system. The [employer] (ACR) has developed recommendations for screening MRI of the breast s in certain patient populations, to be used in conjunction with mammography. Breast MRI surveillanc e may be appropriate for women with more than 20% lifetime risk of developing breast cancer as deter mined by genetic testing, significant family history of the disease, or history of mantle radiation f or Hodgkins Disease. ACR Practice Guidelines 2008. TECHNICAL DOCUMENTATION: FINDING NUMBER: (1) ASSESSMENT: (1) JOB ID: [id number] [employer]- All Rights Reserved Reading location - IP/workstation name: [email or web address]
== END ==
LOC: WI 10:39
PROVIDERS: ATTEND Internal Medicine
DX: Z12.31 Encounter for screening mammogram for malignant neoplasm of breast (principal)
CPT/HCPCS: 77067

== ENCOUNTER → 2019-01-04 | Outpatient (CLI) | payer MEDICARE, MEDICAID ==
[2019-01-04 11:55] LABS: ANION GAP 9 (5-19); BLOOD UREA NITROGEN 15 mg/dL (7-20); CALCIUM 10.1 mg/dL (8.4-10.2); CARBON DIOXIDE 27 mmol/L (22-30); CHLORIDE 107 mmol/L (98-107); GLUCOSE 107 mg/dL (75-110); POTASSIUM 3.9 mmol/L (3.6-5.0); SODIUM 143.3 mmol/L (137-145)
--- NOTE | 2019-01-04 19:57 | XCELERA REPORT ---
[address] [address] Transthoracic Echocardiogram Report Name: QUEEN Raissa TRUONG Age: 68 yrs Gender: Female : 1950 Patient Status: Outpatient Patient Location: [facility] Study Date: 01/04/2019 09:55 AM Height: 65 in Weight: 319 lb BSA: 2.4 m2 Reason For Study: CHF Ordering Physician: CAROL GAMBLE Performed By: Cj Farmer Interpretation Summary No evidence of CHF. Mod conc. LVH with normal LVEF 75%, and LV diastolic dysfunction, no LVenlargement, no segmental regional wall motion abnormality. Mild /mod AV sclerosis involving all 3 cusps, with no ASn and mild AR with no LV enlargement Mild Mitral annular calcification, no MS, no MVP, mild/mod MR with mild LA enlargement. Mod TR with mod pulm hypertension, dilated IVC, mild RA enlargement. small circum pericardial effusion. aortic root calcified, not dilated. MMode/2D Measurements & Calculations RVDd: 4.3 cm LVIDd: 5.7 cm FS: 49.2 % Ao root diam: 3.2 cm IVSd: 1.7 cm LVIDs: 2.9 cm EDV(Teich): 157.0 ml LVPWd: 1.6 cm ESV(Teich): 31.4 ml Ao root area: 8.3 cm2 LA dimension: 4.8 cm EF(Teich): 80.0 % Doppler Measurements & Calculations MV E max leanna: MV P1/2t max leanna: Ao V2 max: AI max leanna: 132.0 cm/sec 142.0 cm/sec 184.0 cm/sec 333.0 cm/sec MV A max leanna: MV P1/2t: 72.1 msec Ao max PG: AI max P.6 cm/sec MVA(P1/2t): 3.1 cm2 13.5 mmHg 44.4 mmHg MV E/A: 1.4 MV dec slope: AI dec slope: 187.0 cm/sec2 577.0 cm/sec2 AI P1/2t: MV dec time: 0.18 sec 521.6 msec LV V1 max PG: PA V2 max: TR max leanna: AV P1/2t-pr_phl: 9.5 mmHg 105.0 cm/sec 323.0 cm/sec 521.0 msec LV V1 max: PA max P.4 mmHg TR max P.0 cm/sec 41.7 mmHg LV dP/dt: 1136 mmHg/s MV P1/2t-pr_phl: 72.0 msec Left Ventricle The left ventricle is normal in size. There is moderate concentric left ventricular hypertrophy. IVS/PW = 15/17. The left ventricular ejection fraction is normal. LV EF is 75%. The E/E' ratio between the mitral E wave and the mitral annulus E' wave is abnormal, with a value of > 10. No regional wall motion abnormalities noted. There is no thrombus. Right Ventricle The right ventricle is normal size. The right ventricular systolic function is normal. Atria The right atrium is normal in size. The left atrium is dilated. The left atrium is mildly dilated. There is no Doppler evidence for an interatrial shunt. Mitral Valve There is mild mitral leaflet calcification. There is mild mitral annular calcification. There is no evidence of mitral valve prolapse. There is no mitral valve stenosis. There is a mild to moderate amount of mitral regurgitation. Aortic Valve The aortic valve is moderately calcified. The aortic valve is trileaflet. The aortic valve opens well. Cannot exclude aortic valvular vegetation. There is no aortic valve stenosis. There is a mild amount of aortic regurgitation. Tricuspid Valve The tricuspid is normal in structure and function. There is no tricuspid valve prolapse. There is no tricuspid stenosis. There is a moderate amount of tricuspid regurgitation. RSVP is equal to 50. Pulmonic Valve There is a trace or physiologic amount of pulmonic regurgitation. Great Vessels The aortic root is normal size. There is aortic root sclerosis/calcification. Effusions There is a small pericardial effusion that is circumferential. I WMSI = 1.00 % Normal = 100 Segments Size X - Cannot 1 - Normal 2 - 3 - Akinetic4 - 1-2 small Interpret Hypokinetic Dyskinetic 3-5 moderate 5 - 6-14 large Aneurysmal 15-16 diffuse : CAROL GAMBLE > Swapnil Parker
== END ==
LOC: SP 09:27
PROVIDERS: ATTEND Internal Medicine
DX: I50.9 Heart failure, unspecified (principal); N19 Unspecified kidney failure
CPT/HCPCS: 36415; 80048; 93306

== ENCOUNTER → 2019-07-07 | Outpatient (CLI) | payer MEDICARE, MEDICAID ==
[2019-07-07 12:10] LABS: HEMOGLOBIN 12.3 g/dL (12.0-15.5); MEAN CORPUSCULAR HEMOGLOBIN 25.5 pg (27.0-33.4); MEAN CORPUSCULAR HGB CONC 31.6 g/dL (32.0-36.0); MEAN CORPUSCULAR VOLUME 81 fl (80-97); PLATELET COUNT 203 10^3/uL (150-450); RED BLOOD COUNT 4.84 10^6/uL (3.72-5.28); RED CELL DISTRIBUTION WIDTH 16.7 % (11.5-14.0); WHITE BLOOD COUNT 4.8 10^3/uL (4.0-10.5)
[2019-07-07 12:15] LABS: APPEARANCE,URINE CLEAR; BILIRUBIN,URINE NEGATIVE (NEGATIVE); COLOR,URINE YELLOW; GLUCOSE, URINE NEGATIVE (NEGATIVE); KETONES,URINE NEGATIVE (NEGATIVE); LEUKOCYTE ESTERASE,URINE NEGATIVE (NEGATIVE); NITRITE,URINE NEGATIVE (NEGATIVE); PROTEIN,URINE 100 mg/dL (NEGATIVE); UROBILINOGEN,URINE NEGATIVE mg/dL (<2.0)
[2019-07-07 12:16] LABS: ADD MANUAL MICROSCOPIC YES
[2019-07-07 12:41] LABS: ANION GAP 11 (5-19); BLOOD UREA NITROGEN 21 mg/dL (7-20); CARBON DIOXIDE 26 mmol/L (22-30); CHLORIDE 108 mmol/L (98-107); GLUCOSE 97 mg/dL (75-110); POTASSIUM 4.2 mmol/L (3.6-5.0)
[2019-07-07 12:48] LABS: RBC,URINE RARE /HPF; WBC,URINE RARE /HPF
[2019-07-07 12:56] LABS: UR PRO/CREAT RATIO RESULT 0.3 mg/mg (0.0-0.2); URINE CREATININE 197.5 mg/dL (15-278)
== END ==
LOC: OD 10:47
PROVIDERS: ATTEND Internal Medicine Nephrology
DX: R80.9 Proteinuria, unspecified (principal); I13.0 Hypertensive heart and chronic kidney disease with heart failure and stage 1 through stage 4 chronic kidney disease, or unspecified chronic kidney disease; I50.9 Heart failure, unspecified; N18.9 Chronic kidney disease, unspecified
CPT/HCPCS: 36415; 80048; 81001; 82570; 84156; 85027

== ENCOUNTER → 2019-08-24 | Outpatient (CLI) | payer MEDICARE, MEDICAID ==
[2019-08-24 11:39] LABS: ALBUMIN 4.1 g/dL (3.5-5.0); ALKALINE PHOSPHATASE 94 U/L (38-126); ANION GAP 9 (5-19); ASPARTATE AMINO TRANSFERASE 18 U/L (14-36); BILIRUBIN,DIRECT 0.1 mg/dL (0.0-0.4); BILIRUBIN,TOTAL 0.3 mg/dL (0.2-1.3); BLOOD UREA NITROGEN 18 mg/dL (7-20); CALCIUM 9.7 mg/dL (8.4-10.2); CARBON DIOXIDE 26 mmol/L (22-30); CHLORIDE 108 mmol/L (98-107); CHOLESTEROL 134.67 mg/dL (0-200); GLUCOSE 99 mg/dL (75-110); TOTAL PROTEIN 7.6 g/dL (6.3-8.2); TRIGLYCERIDES 69 mg/dL (<150)
[2019-08-24 11:51] LABS: DIRECT LDL 63 mg/dL (<100)
== END ==
LOC: OD 10:11
PROVIDERS: ATTEND Family Medicine
DX: I12.9 Hypertensive chronic kidney disease with stage 1 through stage 4 chronic kidney disease, or unspecified chronic kidney disease (principal); N18.3 Chronic kidney disease, stage 3 (moderate); R73.01 Impaired fasting glucose; Z13.220 Encounter for screening for lipoid disorders
CPT/HCPCS: 36415; 80053; 80061; 83036

== ENCOUNTER → 2019-10-05 | Outpatient (CLI) | payer MEDICARE, MEDICAID ==
[2019-10-05 12:44] LABS: ANION GAP 11 (5-19); BLOOD UREA NITROGEN 16 mg/dL (7-20); CALCIUM 9.7 mg/dL (8.4-10.2); CARBON DIOXIDE 27 mmol/L (22-30); CHLORIDE 107 mmol/L (98-107); GLUCOSE 98 mg/dL (75-110); POTASSIUM 4.1 mmol/L (3.6-5.0)
== END ==
LOC: OD 10:57
PROVIDERS: ATTEND Family Medicine Geriatric Medicine
DX: N18.3 Chronic kidney disease, stage 3 (moderate) (principal); R25.2 Cramp and spasm
CPT/HCPCS: 36415; 80048; 83735

== ENCOUNTER 2019-10-23 16:14 | Inpatient (IN) | payer MEDICARE, MEDICAID ==
[2019-10-23] MEDS ORDERED: IPRATROPIUM/ALBUTEROL 0.5-2.5 MG/3 ML AMPUL NEB ONE ×2 (16:32→16:38)
--- NOTE | 2019-10-23 16:37 | ER Document Report ---
ED Medical Screen (RME) - General Chief Complaint: Breathing Difficulty Stated Complaint: DIFFICULTY BREATHING Time Seen by Provider: 10/23/19 16:32 Primary Care Provider: DEEJAY FUCHS MD [Primary Care Provider] - Follow up as needed TRAVEL OUTSIDE OF THE [place] IN LAST 30 DAYS: No - HPI Notes: 10/23/19 16:34 68-year-old female with a history of COPD and hypertension presents to the emergency room with shortness of breath that started 1 day ago. Patient denies any chest pain chest tightness. Pt does wear oxygen at home as needed. Has not tried any [id number] medications, worse with time. At triage oxygenation 87% on room air. I was asked to evaluate patient and the waiting room. Denies history of asthma. Patient dyspneic with speaking. I have greeted and performed a rapid initial assessment of this patient. A comprehensive ED assessment and evaluation of the patient, analysis of test results and completion of the medical decision making process will be conducted by additional ED providers. PHYSICAL EXAMINATION: GENERAL: Well-appearing, morbidly obese in mild distress HEAD: Atraumatic, normocephalic. EYES: Pupils equal round extraocular movements intact, conjunctiva are normal. CV, sinus rhythm LUNGS: Diminished breath sounds throughout SKIN: Warm, Dry, normal turgor, no rashes or lesions noted. I have greeted and performed a rapid initial assessment of this patient. A comprehensive ED assessment and evaluation of the patient, analysis of test results and completion of medical decision making process will be conducted by an additional ED providers. - Related Data Allergies/Adverse Reactions: Sulfa (Sulfonamide Antibiotics) Allergy (Verified 12/30/17 08:39) n and v Past Medical History - Past Medical History Cardiac Medical History: Reports: Hx Hypertension - ON MEDS Denies: Hx Atrial Fibrillation, Hx Congestive Heart Failure, Hx Coronary Artery Disease, Hx Heart Attack, Hx Hypercholesterolemia Pulmonary Medical History: Reports: Hx Asthma, Hx Bronchitis, Hx COPD - HX OF INHALER, Hx Pneumonia Neurological Medical History: Denies: Hx Cerebrovascular Accident, Hx Seizures Endocrine Medical History: Denies: Hx Diabetes Mellitus Type 1, Hx Diabetes Mellitus Type 2 GI Medical History: Denies: Hx Gastroesophageal Reflux Disease, Hx Hepatitis, Hx Hiatal Hernia, Hx Ulcer Musculoskeltal Medical History: Denies Hx Arthritis Infectious Medical History: Denies: Hx Hepatitis Past Surgical History: Denies: Hx Mastectomy, Hx Open Heart Surgery, Hx Pacemaker - Immunizations Hx Diphtheria, Pertussis, Tetanus Vaccination: Yes Doctor's Discharge - Discharge Referrals: DEEJAY FUCHS MD [Primary Care Provider] - Follow up as needed
[2019-10-23] MEDS ORDERED: METHYLPREDNISOLONE INJ 125 MG/2 ML SDV IV ONE (16:38)
[2019-10-23 16:58] LABS: ABSOLUTE MONOCYTES (AUTO) 0.5 10^3/uL (0.1-1.4); ABSOLUTE NEUT (AUTO) 3.8 10^3/uL (1.7-8.2); BASOPHILS % (AUTO) 0.8 % (0-2); EOSINOPHILS % (AUTO) 0.5 % (0-6); HEMATOCRIT 38.1 % (36.0-47.0); HEMOGLOBIN 11.8 g/dL (12.0-15.5); LYMPHOCYTES % (AUTO) 18.5 % (13-45); MEAN CORPUSCULAR HEMOGLOBIN 25.8 pg (27.0-33.4); MEAN CORPUSCULAR HGB CONC 30.8 g/dL (32.0-36.0); MEAN CORPUSCULAR VOLUME 84 fl (80-97); MONOCYTES % (AUTO) 9.5 % (3-13); PLATELET COUNT 207 10^3/uL (150-450); RED BLOOD COUNT 4.55 10^6/uL (3.72-5.28); RED CELL DISTRIBUTION WIDTH 17.7 % (11.5-14.0); SEGMENTED NEUTROPHILS % (AUTO) 70.7 % (42-78); TOTAL CELLS COUNTED % (AUTO) 100 %; WHITE BLOOD COUNT 5.4 10^3/uL (4.0-10.5)
--- NOTE | 2019-10-23 17:12 | RADIOLOGY REPORT (SQ) ---
EXAM DESCRIPTION: CHEST SINGLE VIEW COMPLETED DATE/TIME: 10/23/2019 5:02 pm REASON FOR STUDY: sob, pulse ox 88% COMPARISON: 09/03/2016 TECHNIQUE: Single frontal radiographic view of the chest acquired. NUMBER OF VIEWS: One view. LIMITATIONS: None. FINDINGS: LUNGS AND PLEURA: No pneumothorax. Bibasilar consolidation - pleural effusion, left great er than right. MEDIASTINUM AND HILAR STRUCTURES: Stable. HEART AND VASCULAR STRUCTURES: Stable. BONES: No acute findings. HARDWARE: None in the chest. OTHER: No other significant finding. IMPRESSION: Bibasilar consolidation - pleural effusion, left greater than right. TECHNICAL DOCUMENTATION: JOB ID: [id number] [employer]- All Rights Reserved Reading location - IP/workstation name: [employer]
[2019-10-23 17:13] LABS: ALBUMIN 3.7 g/dL (3.5-5.0); ALKALINE PHOSPHATASE 79 U/L (38-126); ANION GAP 10 (5-19); ASPARTATE AMINO TRANSFERASE 26 U/L (14-36); BILIRUBIN,DIRECT 0.2 mg/dL (0.0-0.4); BILIRUBIN,TOTAL 0.5 mg/dL (0.2-1.3); BLOOD UREA NITROGEN 18 mg/dL (7-20); CALCIUM 9.6 mg/dL (8.4-10.2); CARBON DIOXIDE 28 mmol/L (22-30); CHLORIDE 105 mmol/L (98-107); GLUCOSE 97 mg/dL (75-110); TOTAL PROTEIN 6.9 g/dL (6.3-8.2)
[2019-10-23 17:25] LABS: TROPONIN I 0.029 ng/mL
[2019-10-23] MEDS ORDERED: PREDNISONE 20 MG TABLET PO ONE (17:38)
[2019-10-23] MEDS ORDERED: DOXYCYCLINE HYCLATE INJ 100 MG VIAL IV ONE (17:42)
--- NOTE | 2019-10-23 17:49 | ER Document Report ---
ED General - General Chief Complaint: Respiratory Distress Stated Complaint: DIFFICULTY BREATHING Time Seen by Provider: 10/23/19 16:32 TRAVEL OUTSIDE OF THE [place] IN LAST 30 DAYS: No - HPI Notes: Patient presents with approximately 1 day of worsening shortness of breath. History of COPD no known heart problems including no history of CHF. No recent cough congestion or chest pain. She is found to be 82% in triage was provided increased nasal cannula and multiple duo nebs O2 saturation 97% She Is He modynamically Stable and Continues to Deny Any Chest Pain at This Time. She Has Noticed That She Has Been Having Swelling around Her Eyes and Her Legs over the Last Several Days As Well. No Recent Fevers or Illnesses - Related Data Allergies/Adverse Reactions: Sulfa (Sulfonamide Antibiotics) Allergy (Verified 10/23/19 19:34) n and v Past Medical History - Social History Smoking Status: Never Smoker Chew tobacco use (# tins/day): No Frequency of alcohol use: None Drug Abuse: None Family History: Reviewed & Not Pertinent Patient has suicidal ideation: No Patient has homicidal ideation: No - Past Medical History Cardiac Medical History: Reports: Hx Hypertension - ON MEDS Denies: Hx Atrial Fibrillation, Hx Congestive Heart Failure, Hx Coronary Artery Disease, Hx Heart Attack, Hx Hypercholesterolemia Pulmonary Medical History: Reports: Hx Asthma, Hx Bronchitis, Hx COPD - HX OF INHALER, Hx Pneumonia Neurological Medical History: Denies: Hx Cerebrovascular Accident, Hx Seizures Endocrine Medical History: Denies: Hx Diabetes Mellitus Type 1, Hx Diabetes Mellitus Type 2 GI Medical History: Denies: Hx Gastroesophageal Reflux Disease, Hx Hepatitis, Hx Hiatal Hernia, Hx Ulcer Musculoskeletal Medical History: Denies Hx Arthritis Infectious Medical History: Denies: Hx Hepatitis Past Surgical History: Denies: Hx Mastectomy, Hx Open Heart Surgery, Hx Pacemaker - Immunizations Hx Diphtheria, Pertussis, Tetanus Vaccination: Yes Hx Pneumococcal Vaccination: 08/04/17 Review of Systems - Review of Systems Constitutional: No symptoms reported EENT: No symptoms reported Cardiovascular: No symptoms reported Respiratory: See HPI Gastrointestinal: No symptoms reported Genitourinary: No symptoms reported Female Genitourinary: No symptoms reported Musculoskeletal: No symptoms reported Skin: No symptoms reported Hematologic/Lymphatic: No symptoms reported Neurological/Psychological: No symptoms reported Physical Exam - Vital signs Vitals: Pulse Ox 82 L 10/23/19 16:28 - General General appearance: Appears well, Alert - HEENT Head: Normocephalic, Atraumatic Eyes: Periorbital edema - Respiratory Respiratory status: No respiratory distress Chest status: Nontender Breath sounds: Decreased air movement - Prolonged and expiratory phase, Other - Cardiovascular Rhythm: Regular, Other Heart sounds: Normal auscultation - Extremities General upper extremity: Normal inspection, Normal strength General lower extremity: Other - Also on bilateral pitting edema - Neurological Neuro grossly intact: Yes Cognition: Normal Orientation: AAOx4 - Psychological Associated symptoms: Normal affect Course - Re-evaluation Re-evalutation: 10/23/19 17:48 Patient provided multiple duo nebs labs within normal limits are nonsignificant. Denies any chest pain at this time. Will be admitted for COPD exacerbation steroids provided emergency department as well as antibiotics. Also with there is a component of new onset CHF recommend an echocardiogram to hospitalist. - Vital Signs Vital signs: Temp Pulse Resp BP Pulse Ox 98.5 F 94 20 139/64 H 96 10/24/19 12:35 10/24/19 14:00 10/24/19 12:35 10/24/19 12:35 10/24/19 12:35 - Laboratory Result Diagrams: 10/24/19 05:22 10/24/19 05:22 Laboratory results interpreted by me: 10/23/19 10/23/19 10/23/19 16:45 16:45 16:45 Hgb 11.8 L MCH 25.8 L MCHC 30.8 L RDW 17.7 H Est GFR ( Amer) 56 L Est GFR (MDRD) Non-Af 47 L NT-Pro-B Natriuret Pep 891 H Discharge - Discharge Clinical Impression: COPD exacerbation, Anasarca Condition: Good Disposition: ADMITTED INPATIENT Admitting Provider: Ramin (Hospitalist) Unit Admitted: Telemetry
[2019-10-23] MEDS ORDERED: METOPROLOL TARTRATE PF/INJ 5 MG/5 ML SDV IV PRN (18:14)
--- NOTE | 2019-10-23 18:22 | PDOC H&P ---
History of Present Illness Admission Date/PCP: 10/23/19 18:06 DEEJAY FUCHS MD History of Present Illness: QUEEN Raissa TRUONG is a 68 year old female past medical history of diastolic heart f ailure, COPD oxygen dependent, FREDDY CPAP dependent, hypertension, obesity, former smoker, presenting to ED complaining of worsening shortness of breath x1 week, associated with worsening lower extremity edema, abdominal distention, pillow orthopnea, paroxysmal nocturnal dyspnea. Denies any chest pain, fever, cough, headache, nausea, vomiting, abdominal pain, diarrhea, constipation or any urinary symptoms. Past Medical History Cardiac Medical History: Reports: Hypertension - ON MEDS Denies: Atrial Fibrillation, Congestive Heart Failure, Coronary Artery Disease, Myocardial Infarction, Hyperlipidema Pulmonary Medical History: Reports: Asthma, Bronchitis, Chronic Obstructive Pulmonary Disease (COPD) - HX OF INHALER, Pneumonia Neurological Medical History: Denies: Seizures Endocrine Medical History: Denies: Diabetes Mellitus Type 1, Diabetes Mellitus Type 2 GI Medical History: Denies: Gastroesophageal Reflux Disease, Hepatitis, Hiatal Hernia Musculoskeltal Medical History: Denies: Arthritis Hematology: Reports: Anemia - HX OF Denies: Sickle Cell Disease Past Surgical History Past Surgical History: Denies: Amputation, Mastectomy, Pacemaker Social History Smoking Status: Never Smoker Electronic Cigarette use?: No Family History Parental Family History Reviewed: Yes Children Family History Reviewed: Yes Sibling(s) Family History Reviewed.: Yes Medication/Allergy Home Medications: Allopurinol [Zyloprim 100 mg Tablet] 100 mg PO DAILY 12/30/17 Aspirin [Ecotrin] 81 mg PO DAILY 12/30/17 Brinzolamide/Brimonidine Tart [Simbrinza 1%-0.2% Eye Drops] 2 drop OP BID 12/30/17 Difluprednate [Durezol] 1 drop OP TID 12/30/17 Diltiazem HCl [Cardizem Cd 240 mg Capsule.cr] 240 mg PO QHS 12/30/17 Fluticasone Propionate [Flovent Diskus] 50 mcg IH BID 12/30/17 Fluticasone/Salmeterol [Advair 250-50 Diskus 14 Dose/Diskus] 1 puff IH DAILY 12/30/17 Furosemide [Lasix 40 mg Tablet] 40 mg PO BID 12/30/17 Hydralazine HCl 50 mg PO TID 12/30/17 Ipratropium/Albuterol Sulfate [Iprat-Albut 0.5-3(2.5) mg/3 ml] 1 dose IH DAILY 12/30/17 Loratadine 10 mg PO DAILY 12/30/17 Pantoprazole Sodium [Protonix] 40 mg PO DAILY 12/30/17 Potassium Chloride 20 meq PO DAILY 12/30/17 Spironolactone 1 tab PO Q2 01/14/18 Brinzolamide/Brimonidine Tart [Simbrinza 1%-0.2% Eye Drops] 1 drop OU TID 10/04/18 Moxifloxacin HCl [Vigamox 0.5% Oph Soln 3 ml] 1 drop OP ASDIR PRN 10/04/18 Nepafenac [Ilevro] 3 ml OP .ASDIR 10/04/18 Allergies/Adverse Reactions: Sulfa (Sulfonamide Antibiotics) Allergy (Verified 12/30/17 08:39) n and v Physical Exam Vital Signs: Temp Pulse Resp BP Pulse Ox 24 H 155/93 H 97 10/23/19 17:01 10/23/19 17:01 10/23/19 17:01 Results Laboratory Results: 10/23/19 16:45 10/23/19 16:45 10/23/19 10/23/19 10/23/19 16:45 16:45 16:45 WBC 5.4 RBC 4.55 Hgb 11.8 L Hct 38.1 MCV 84 MCH 25.8 L MCHC 30.8 L RDW 17.7 H Plt Count 207 Seg Neutrophils % 70.7 Sodium 143.4 Potassium 4.0 Chloride 105 Carbon Dioxide 28 Anion Gap 10 BUN 18 Creatinine 1.16 Est GFR ( Amer) 56 L Glucose 97 Calcium 9.6 Magnesium 2.3 Total Bilirubin 0.5 AST 26 Alkaline Phosphatase 79 Total Protein 6.9 Albumin 3.7 10/23/19 16:45 Troponin I 0.029 NT-Pro-B Natriuret Pep 891 H Impressions: Chest X-Ray 10/23/19 16:32 IMPRESSION: Bibasilar consolidation - pleural effusion, left greater than right. Assessment and Plan - Diagnosis (1) Acute respiratory failure with hypoxia Is this a current diagnosis for this admission?: Yes Plan: Most likely due to COPD exacerbation complicated by underlying acute diastolic CHF. Admit to telemetry, [place], IV steroids, empiric antibiotics, pulmonary toileting, LMA, LABA, ICS, incentive spirometry, flutter valve. (2) Acute CHF (congestive heart failure) Qualifiers: Heart failure type: diastolic Qualified Code(s): I50.31 - Acute diastolic (congestive) heart failure Is this a current diagnosis for this admission?: Yes Plan: History of diastolic heart failure. Acutely exacerbated. proBNP elevated. Denies any chest pain. 01/04/2019. 2D echo left ventricular hypertrophy. Ejection fraction 75%. Left ventricular diastolic dysfunction. RSVP 50 mmHg. Admit to telemetry, volume restriction, daily weight, IV diuretics, ROB, beta-blockers. (3) HTN (hypertension) Is this a current diagnosis for this admission?: Yes Plan: Restart home meds. Monitor vitals. Adjust meds as needed. PRN hydralazine. (4) FREDDY (obstructive sleep apnea) Is this a current diagnosis for this admission?: Yes Plan: History of FREDDY. CPAP dependent. Nocturnal CPAP. (5) Morbid obesity Is this a current diagnosis for this admission?: Yes Plan: Diet and lifestyle modification recommended. Will obtain TSH. (6) COPD exacerbation Is this a current diagnosis for this admission?: Yes Plan: As per #1.
[2019-10-23] MEDS ORDERED: TEMAZEPAM 7.5 MG CAPSULE PO PRN (18:36)
[2019-10-23] MEDS ORDERED: PROMETHAZINE HCL INJ 25 MG/1 ML VIAL IV PRN (18:36)
[2019-10-23] MEDS ORDERED: MAG HYDROX/AL HYDROX/SIMETH SUSP 30 ML UDCUP PO PRN (18:36)
[2019-10-23 19:15] LABS: APPEARANCE,URINE CLEAR; BILIRUBIN,URINE NEGATIVE (NEGATIVE); COLOR,URINE STRAW; GLUCOSE, URINE NEGATIVE (NEGATIVE); KETONES,URINE NEGATIVE (NEGATIVE); LEUKOCYTE ESTERASE,URINE SMALL (NEGATIVE); NITRITE,URINE NEGATIVE (NEGATIVE); PROTEIN,URINE 30 mg/dL (NEGATIVE); URINE SPECIFIC GRAVITY 1.009; UROBILINOGEN,URINE NEGATIVE mg/dL (<2.0)
[2019-10-23 19:20] LABS: FREE T4 (FREE THYROXINE) 0.92 ng/dL (0.78-2.19)
[2019-10-23 19:34] LABS: THYROID STIMULATING HORMONE 1.46 uIU/mL (0.47-4.68)
--- NOTE | 2019-10-23 19:34 | EKG REPORT ---
SEVERITY:- ABNORMAL ECG - ATRIAL-PACED COMPLEXES RIGHT BUNDLE BRANCH BLOCK : Confirmed by: Yaneli Schmidt MD 23-Oct-2019 19:33:14
[2019-10-23 20:41] LABS: CREATINE KINASE MB 1.72 ng/mL (<4.55); TROPONIN I 0.031 ng/mL
[2019-10-23] MEDS: IPRATROPIUM/ALBUTEROL 0.5-2.5 MG/3 ML AMPUL NEB SCH (21:14)
[2019-10-23] MEDS: FUROSEMIDE INJ/PF 40 MG/4 ML SDV IV SCH ×2 (21:37)
[2019-10-23] MEDS: METHYLPREDNISOLONE INJ 40 MG/1 ML SDV IV SCH (21:38)
[2019-10-23] MEDS: HEPARIN SOD (PORCINE) 5,000 UNIT/ML 1 ML VIAL SUBCUT SCH (21:38)
[2019-10-23] MEDS: FAMOTIDINE 20 MG TABLET PO SCH (21:38)
[2019-10-24] MEDS: HYDRALAZINE HCL INJ/PF 20 MG/1 ML SDV IV PRN ×2 (01:05→06:04)
[2019-10-24 05:32] LABS: MEAN CORPUSCULAR HEMOGLOBIN 25.8 pg (27.0-33.4); MEAN CORPUSCULAR HGB CONC 30.7 g/dL (32.0-36.0); MEAN CORPUSCULAR VOLUME 84 fl (80-97); PLATELET COUNT 211 10^3/uL (150-450); RED BLOOD COUNT 4.63 10^6/uL (3.72-5.28); RED CELL DISTRIBUTION WIDTH 18.5 % (11.5-14.0); WHITE BLOOD COUNT 5.8 10^3/uL (4.0-10.5)
[2019-10-24] MEDS: METHYLPREDNISOLONE INJ 40 MG/1 ML SDV IV SCH ×3 (05:32→22:16)
[2019-10-24] MEDS: HEPARIN SOD (PORCINE) 5,000 UNIT/ML 1 ML VIAL SUBCUT SCH ×3 (05:32→22:16)
[2019-10-24 05:53] LABS: ALBUMIN 3.8 g/dL (3.5-5.0); ALKALINE PHOSPHATASE 75 U/L (38-126); ANION GAP 9 (5-19); ASPARTATE AMINO TRANSFERASE 27 U/L (14-36); BILIRUBIN,DIRECT 0.2 mg/dL (0.0-0.4); BILIRUBIN,TOTAL 0.5 mg/dL (0.2-1.3); BLOOD UREA NITROGEN 18 mg/dL (7-20); CALCIUM 9.8 mg/dL (8.4-10.2); CARBON DIOXIDE 27 mmol/L (22-30); CHLORIDE 108 mmol/L (98-107); CHOLESTEROL 130.52 mg/dL (0-200); GLUCOSE 133 mg/dL (75-110); POTASSIUM 4.5 mmol/L (3.6-5.0); TOTAL PROTEIN 7.1 g/dL (6.3-8.2); TRIGLYCERIDES 40 mg/dL (<150)
[2019-10-24 06:04] LABS: ABSOLUTE LYMPHOCYTES# (MANUAL) 0.6 10^3/uL (0.5-4.7); ABSOLUTE MONOCYTES # (MANUAL) 0.1 10^3/uL (0.1-1.4); ANISOCYTOSIS 1+; BAND NEUTROPHILS % (MANUAL) 1 % (3-5); BASOPHILS % (MANUAL) 0 % (0-2); DIRECT LDL 62 mg/dL (<100); EOSINOPHILS % (MANUAL) 0 % (0-6); HYPOCHROMASIA 1+; LYMPHOCYTES % (MANUAL) 11 % (13-45); MONOCYTES % (MANUAL) 2 % (3-13); PLATELET COMMENT ADEQUATE; POLYCHROMASIA 1+; SEGMENTED NEUTROPHILS % (MAN) 86 % (42-78); TOTAL CELLS COUNTED 100
[2019-10-24] MEDS: IPRATROPIUM/ALBUTEROL 0.5-2.5 MG/3 ML AMPUL NEB SCH ×3 (08:41→21:17)
[2019-10-24] MEDS: LOSARTAN POTASSIUM 50 MG TABLET PO SCH (09:37)
[2019-10-24] MEDS: AZITHROMYCIN 250 MG TABLET PO SCH (09:37)
[2019-10-24] MEDS: FUROSEMIDE INJ/PF 40 MG/4 ML SDV IV SCH ×2 (09:38→22:16)
[2019-10-24] MEDS: DOCUSATE SODIUM 100 MG CAPSULE PO SCH (09:38)
[2019-10-24] MEDS: FAMOTIDINE 20 MG TABLET PO SCH ×2 (09:39→22:16)
[2019-10-24] MEDS: FLUTICASONE/UMECLIDIN/VILANTER 100-62.5-25 MCG/DOSE IH SCH (09:46)
--- NOTE | 2019-10-24 13:25 | PDOC PROGRESS REPORT ---
Subjective Progress Note for:: 10/24/19 Subjective:: QUEEN Raissa TRUONG is a 68 year old female past medical history of diastolic heart failure, COPD oxygen dependent, FREDDY CPAP dependent, hypertension, obesity, former smoker, presenting to ED complaining of worsening shortness of breath x1 week, associated with worsening lower extremity edema, abdominal distention, pillow orthopnea, paroxysmal nocturnal dyspnea. Denies any chest pain, fever, cough, headache, nausea, vomiting, abdominal pain, diarrhea, constipation or any urinary symptoms. 10/24/2019. No acute events overnight. Patient currently resting in recliner stating that she is feeling better compared to yesterday, in no apparent distress, lower extremity edema has improved, denies any fever, chills, nausea, vomiting, diarrhea, constipation or any urinary symptoms. Reason For Visit: COPD EXACERBATION ANASARCA Physical Exam Vital Signs: Temp Pulse Resp BP Pulse Ox 98.0 F 96 25 H 150/100 H 93 10/23/19 19:57 10/24/19 07:00 10/24/19 04:07 10/24/19 02:36 10/23/19 21:14 Intake & Output 10/23/19 10/24/19 10/25/19 06:59 06:59 06:59 Output Total 1700 Balance -1700 Weight 149.9 kg General appearance: PRESENT: no acute distress, morbidly obese, well-developed, well-nourished Head exam: PRESENT: atraumatic, normocephalic Respiratory exam: PRESENT: clear to auscultation [place]. ABSENT: rales, rhonchi, wheezes Cardiovascular exam: PRESENT: RRR. ABSENT: diastolic murmur, rubs, systolic murmur Pulses: PRESENT: normal dorsalis pedis pul GI/Abdominal exam: PRESENT: normal bowel sounds, soft. ABSENT: distended, guarding, mass, organolmegaly, rebound, tenderness Extremities exam: PRESENT: +2 edema Musculoskeletal exam: PRESENT: ambulatory Neurological exam: PRESENT: alert, awake, oriented to person, oriented to place, oriented to time, oriented to situation, CN II-XII grossly intact. ABSENT: motor sensory deficit Skin exam: PRESENT: dry, intact, warm. ABSENT: cyanosis, rash Results Laboratory Results: 10/24/19 05:22 10/24/19 05:22 1210/23/19 10/23/19 16:45 16:45 16:45 WBC 5.4 RBC 4.55 Hgb 11.8 L Hct 38.1 MCV 84 MCH 25.8 L MCHC 30.8 L RDW 17.7 H Plt Count 207 Seg Neutrophils % 70.7 Sodium 143.4 Potassium 4.0 Chloride 105 Carbon Dioxide 28 Anion Gap 10 BUN 18 Creatinine 1.16 Est GFR ( Amer) 56 L Glucose 97 Calcium 9.6 Magnesium 2.3 Total Bilirubin 0.5 AST 26 Alkaline Phosphatase 79 Total Protein 6.9 Albumin 3.7 Triglycerides Cholesterol LDL Cholesterol Direct VLDL Cholesterol HDL Cholesterol TSH Free T4 Urine Color Urine Appearance Urine pH Ur Specific Tie [place]iding Urine Protein Urine Glucose (UA) Urine Ketones Urine Blood Urine Nitrite Ur Leukocyte Esterase Urine WBC (Auto) Urine RBC (Auto) 10/23/19 10/23/19 10/24/19 16:45 19:00 05:22 WBC 5.8 RBC 4.63 Hgb 12.0 Hct 39.0 MCV 84 MCH 25.8 L MCHC 30.7 L RDW 18.5 H Plt Count 211 Seg Neutrophils % Not Reportable Sodium Potassium Chloride Carbon Dioxide Anion Gap BUN Creatinine Est GFR ( Amer) Glucose Calcium Magnesium Total Bilirubin AST Alkaline Phosphatase Total Protein Albumin Triglycerides Cholesterol LDL Cholesterol Direct VLDL Cholesterol HDL Cholesterol TSH 1.46 Free T4 0.92 Urine Color STRAW Urine Appearance CLEAR Urine pH 7.0 Ur Specific [place] 1.009 Urine Protein 30 H Urine Glucose (UA) NEGATIVE Urine Ketones NEGATIVE Urine Blood NEGATIVE Urine Nitrite NEGATIVE Ur Leukocyte Esterase SMALL H Urine WBC (Auto) 3 Urine RBC (Auto) 2 10/24/19 05:22 WBC RBC Hgb Hct MCV MCH MCHC RDW Plt Count Seg Neutrophils % Sodium 143.8 Potassium 4.5 Chloride 108 H Carbon Dioxide 27 Anion Gap 9 BUN 18 Creatinine 1.07 Est GFR ( Amer) > 60 Glucose 133 H Calcium 9.8 Magnesium 2.3 Total Bilirubin 0.5 AST 27 Alkaline Phosphatase 75 Total Protein 7.1 Albumin 3.8 Triglycerides 40 Cholesterol 130.52 LDL Cholesterol Direct 62 VLDL Cholesterol 8.0 L HDL Cholesterol 46 TSH Free T4 Urine Color Urine Appearance Urine pH Ur Specific [place]ie [place]iding Urine Protein Urine Glucose (UA) Urine Ketones Urine Blood Urine Nitrite Ur Leukocyte Esterase Urine WBC (Auto) Urine RBC (Auto) 10/23/19 10/23/19 10/23/19 16:45 16:45 19:45 Creatine Kinase 108 CK-MB (CK-2) 1.72 Troponin I 0.029 0.031 NT-Pro-B Natriuret Pep 891 H Impressions: Chest X-Ray 10/23/19 16:32 IMPRESSION: Bibasilar consolidation - pleural effusion, left greater than right. Assessment and Plan - Diagnosis (1) Acute respiratory failure with hypoxia Is this a current diagnosis for this admission?: Yes Plan: Improving. SPO2 WNL on 2 L NC. Most likely due to COPD exacerbation complicated by underlying acute diastolic CHF. Continue telemetry, duo nebs, IV steroids, empiric antibiotics, pulmonary toileting, LMA, LABA, ICS, incentive spirometry, flutter valve. (2) Acute CHF (congestive heart failure) Qualifiers: Heart failure type: diastolic Qualified Code(s): I50.31 - Acute diastolic (congestive) heart failure Is this a current diagnosis for this admission?: Yes Plan: History of diastolic heart failure. Acutely exacerbated. proBNP elevated. Denies any chest pain. 01/04/2019. 2D echo left ventricular hypertrophy. Ejection fraction 75%. Left ventricular diastolic dysfunction. RSVP 50 mmHg. Continue telemetry, volume restriction, daily weight. Continue beta-blockers uptitrate as tolerated. Continue ARB uptitrated as per tolerated. Continue IV diuretics switched to p.o. once appropriate. Cardiology consulted. Pending recommendation. 2D echo ordered. Pending results. (3) HTN (hypertension) Is this a current diagnosis for this admission?: Yes Plan: Volume overload. Normotensive. Takes diltiazem , losartan and hydralazine at home. Switch diltiazem with metoprolol. Restart losartan. Continue diuretics. Adjust dosage as needed. Outpatient PCP follow-up. PRN hydralazine. (4) FREDYD (obstructive sleep apnea) Is this a current diagnosis for this admission?: Yes Plan: History of FREDDY. CPAP dependent. Nocturnal CPAP. (5) Morbid obesity Is this a current diagnosis for this admission?: Yes Plan: Diet and lifestyle modification recommended. TSH WNL. Hemoglobin A1c 6.3. Lipid panel WNL. (6) COPD exacerbation Is this a current diagnosis for this admission?: Yes Plan: As per #1. (7) Diabetes mellitus type 2 in obese Is this a current diagnosis for this admission?: Yes Plan: Controlled. Takes metformin 500 mg p.o. twice daily at home. Hemoglobin A1c 6.3. Hold metformin. Diabetic diet, basal, prandial, correctional insulin, Accu- Chek, hypoglycemic protocol. Adjust insulin dosage as needed. Restart metformin upon discharge. Outpatient PCP follow-up.
[2019-10-24] MEDS: ACETAZOLAMIDE 250 MG TABLET PO SCH (13:49)
[2019-10-24] MEDS ORDERED: (PENDING PHARMACY ID) (Brinzolamide/Brimonidine Tart [Simbrinza 1%-0.2% Eye Drops] 1 DROP) OU SCH (14:00)
--- NOTE | 2019-10-24 23:13 | XCELERA REPORT ---
[address] [address] Transthoracic Echocardiogram Report Name: QUEEN Raissa TRUONG Age: 68 yrs Gender: Female : 1950 Patient Status: Inpatient Patient Location: [address] [place] [address] Study Date: 10/24/2019 02:03 PM Height: 65 in Weight: 330 lb BSA: 2.4 m2 Procedure: A complete two-dimensional transthoracic echocardiogram was performed (2D, M-mode, spectral and color flow Doppler). The study was technically adequate with some images being suboptimal in quality. Reason For Study: acute chf Ordering Physician: CHELSIE MATUTE Performed By: Tati Carrillo Interpretation Summary The left ventricular ejection fraction is normal. There is mild to moderate concentric left ventricular hypertrophy. The left ventricle is grossly normal size. Doppler measurements suggest pseudonormalized left ventricular relaxation, which is associated with grade II/IV or mild to moderate diastolic dysfunction Wall motion cannot be accurately commented on, but no definite regional wall motion abnormalities noted. The right ventricle is mildly dilated. The right ventricle appears to be hypertrophied The right ventricular systolic function is normal. The left atrium is moderately dilated. The right atrium is mildly dilated. There is a trace to mild amount of mitral regurgitation There is no mitral valve stenosis. There is no aortic valve stenosis No aortic regurgitation is present. There is a mild to moderate amount of tricuspid regurgitation There is moderate pulmonary hypertension by echo Right ventricular systolic pressure is estimated to be elevated at 50-60mmHg. The aortic root is not well visualized. The inferior vena cava appeared normal and decreased > 50% with respiration (RAP 5-10 mmHg) Minimal pericardial effusion. MMode/2D Measurements & Calculations RVDd: 4.0 cm LVIDd: 5.2 cm FS: 32.7 % Ao root diam: 3.3 cm IVSd: 1.6 cm LVIDs: 3.5 cm EDV(Teich): 129.7 ml Ao root area: 8.4 cm2 LVPWd: 1.6 cm ESV(Teich): 50.9 ml LA dimension: 4.7 cm EF(Teich): 60.7 % Doppler Measurements & Calculations MV E max leanna: MV P1/2t max leanna: Ao V2 max: LV V1 max P.4 cm/sec 140.4 cm/sec 192.0 cm/sec 10.5 mmHg MV A max leanna: MV P1/2t: 51.1 msec Ao max PG: LV V1 max: 91.0 cm/sec MVA(P1/2t): 4.3 cm2 14.7 mmHg 161.7 cm/sec MV E/A: 1.5 MV dec slope: 804.1 cm/sec2 MV dec time: 0.17 sec PA V2 max: TR max leanna: MV P1/2t-pr_phl: 78.4 cm/sec 377.3 cm/sec 51.1 msec PA max P.5 mmHgTR max P.0 mmHg Left Ventricle The left ventricle is grossly normal size. There is mild to moderate concentric left ventricular hypertrophy. The left ventricular ejection fraction is normal. Doppler measurements suggest pseudonormalized left ventricular relaxation, which is associated with grade II/IV or mild to moderate diastolic dysfunction. Wall motion cannot be accurately commented on, but no definite regional wall motion abnormalities noted. Right Ventricle The right ventricle is mildly dilated. The right ventricle appears to be hypertrophied. The right ventricular systolic function is normal. Atria The right atrium is mildly dilated. The left atrium is moderately dilated. Interarterial septum not well visualized and not well dopplered. Cannot comment on ASD/PFO presence. Mitral Valve The mitral valve leaflets are sclerotic, but show no functional abnormalities. There is no mitral valve stenosis. There is a trace to mild amount of mitral regurgitation. Aortic Valve The aortic valve is not well visualized secondary to technical limitations. The aortic valve opens well. There is no aortic valve stenosis. No aortic regurgitation is present. Tricuspid Valve The tricuspid valve leaflets are thickened and/or calcified, but open well. There is no tricuspid stenosis. There is a mild to moderate amount of tricuspid regurgitation. There is moderate pulmonary hypertension by echo. Right ventricular systolic pressure is estimated to be elevated at 50-60mmHg. Pulmonic Valve The pulmonic valve is not well visualized. Great Vessels The aortic root is not well visualized. The inferior vena cava appeared normal and decreased > 50% with respiration (RAP 5-10 mmHg). Effusions Minimal pericardial effusion. : CHELSIE MATUTE Shyamal
[2019-10-24] MEDS: METOPROLOL TARTRATE 25 MG TABLET PO SCH (23:18)
[2019-10-25] MEDS: HEPARIN SOD (PORCINE) 5,000 UNIT/ML 1 ML VIAL SUBCUT SCH ×3 (05:26→23:33)
[2019-10-25] MEDS: METHYLPREDNISOLONE INJ 40 MG/1 ML SDV IV SCH ×3 (05:28→23:23)
[2019-10-25] MEDS: IPRATROPIUM/ALBUTEROL 0.5-2.5 MG/3 ML AMPUL NEB SCH ×3 (08:24→21:28)
[2019-10-25] MEDS: ACETAMINOPHEN 325 MG TABLET PO PRN ×2 (08:34→14:15)
[2019-10-25] MEDS: DOCUSATE SODIUM 100 MG CAPSULE PO SCH (09:06)
[2019-10-25] MEDS: LOSARTAN POTASSIUM 50 MG TABLET PO SCH (09:07)
[2019-10-25] MEDS: AZITHROMYCIN 250 MG TABLET PO SCH (09:07)
[2019-10-25] MEDS: METOPROLOL TARTRATE 25 MG TABLET PO SCH ×2 (09:08→23:21)
[2019-10-25] MEDS: FAMOTIDINE 20 MG TABLET PO SCH ×2 (09:08→23:22)
[2019-10-25] MEDS: FLUTICASONE/UMECLIDIN/VILANTER 100-62.5-25 MCG/DOSE IH SCH (09:09)
[2019-10-25] MEDS: ASPIRIN 81 MG TABLET, ENT COATED PO SCH (09:12)
[2019-10-25] MEDS: ACETAZOLAMIDE 250 MG TABLET PO SCH (09:12)
[2019-10-25] MEDS: PANTOPRAZOLE SODIUM 40 MG TABLET.DR PO SCH (09:12)
[2019-10-25] MEDS: ALLOPURINOL 100 MG TABLET PO SCH (09:12)
[2019-10-25] MEDS: FUROSEMIDE INJ/PF 40 MG/4 ML SDV IV SCH (09:12)
[2019-10-25] MEDS: MONTELUKAST SODIUM 10 MG TABLET PO SCH (09:13)
--- NOTE | 2019-10-25 10:26 | PDOC PROGRESS REPORT ---
Subjective Progress Note for:: 10/25/19 Subjective:: QUEEN Raissa TRUONG is a 68 year old female past medical history of diastolic heart failure, COPD oxygen dependent, FREDDY CPAP dependent, hypertension, obesity, former smoker, presenting to ED complaining of worsening shortness of breath x1 week, associated with worsening lower extremity edema, abdominal distention, pillow orthopnea, paroxysmal nocturnal dyspnea. Denies any chest pain, fever, cough, headache, nausea, vomiting, abdominal pain, diarrhea, constipation or any urinary symptoms. 10/24/2019. No acute events overnight. Patient currently resting in recliner stating that she is feeling better compared to yesterday, in no apparent distress, lower extremity edema has improved, denies any fever, chills, nausea, vomiting, diarrhea, constipation or any urinary symptoms. 10/25/2019. No acute events overnight. Patient sitting on the edge of the bed comfortably enjoying her breakfast in no apparent distress. Denies any fever, chills, nausea, vomiting, diarrhea, constipation or any urinary symptoms. Patient pending evaluation by buffer nickel. Patient still has bilateral lower extremity edema improving compared to admission. Reason For Visit: COPD EXACERBATION ANASARCA Physical Exam Vital Signs: Temp Pulse Resp BP Pulse Ox 98.1 F 72 18 162/98 H 94 10/25/19 08:24 10/25/19 08:41 10/25/19 08:41 10/25/19 08:24 10/25/19 08:41 Intake & Output 10/24/19 10/25/19 10/26/19 06:59 06:59 06:59 Intake Total 1540 Output Total 1700 1750 Balance -1700 -210 Weight 149.9 kg 143.8 kg General appearance: PRESENT: no acute distress, morbidly obese, well-developed, well-nourished Head exam: PRESENT: atraumatic, normocephalic Cardiovascular exam: PRESENT: RRR. ABSENT: diastolic murmur, rubs, systolic murmur GI/Abdominal exam: PRESENT: normal bowel sounds, soft. ABSENT: distended, guarding, mass, organolmegaly, rebound, tenderness Extremities exam: PRESENT: +1 edema Neurological exam: PRESENT: alert, awake, oriented to person, oriented to place, oriented to time, oriented to situation, CN II-XII grossly intact. ABSENT: motor sensory deficit Results Laboratory Results: 10/24/19 05:22 10/24/19 05:22 10/23/19 10/23/19 10/23/19 16:45 16:45 19:45 Creatine Kinase 108 CK-MB (CK-2) 1.72 Troponin I 0.029 0.031 NT-Pro-B Natriuret Pep 891 H Impressions: Chest X-Ray 10/23/19 16:32 IMPRESSION: Bibasilar consolidation - pleural effusion, left greater than right. Assessment and Plan - Diagnosis (1) Acute respiratory failure with hypoxia Is this a current diagnosis for this admission?: Yes Plan: Improving. SPO2 WNL on 2 L NC. Most likely due to COPD exacerbation complicated by underlying acute diastolic CHF. Continue telemetry, duo nebs, IV steroids, empiric antibiotics, pulmonary toileting, LMA, LABA, ICS, incentive spirometry, flutter valve. (2) Acute CHF (congestive heart failure) Qualifiers: Heart failure type: diastolic Qualified Code(s): I50.31 - Acute diastolic (congestive) heart failure Is this a current diagnosis for this admission?: Yes Plan: History of diastolic heart failure. Acutely exacerbated. proBNP elevated. Denies any chest pain. 10/24/2019. 2D echo. Left ventricular ejection fraction normal. Grade 2/4 mild to moderate diastolic dysfunction. RSVP 50 to 60 mmHg. 01/04/2019. 2D echo left ventricular hypertrophy. Ejection fraction 75%. Left ventricular diastolic dysfunction. RSVP 50 mmHg. Continue telemetry, volume restriction, daily weight. Continue beta-blockers uptitrate as tolerated. Continue ARB uptitrated as per tolerated. Continue IV diuretics switched to p.o. once appropriate. Cardiology consulted. Pending recommendation. (3) HTN (hypertension) Is this a current diagnosis for this admission?: Yes Plan: Not optimized. Takes diltiazem , losartan and hydralazine at home. Switch diltiazem with metoprolol. Restart losartan. Continue diuretics. Adjust dosage as needed. Outpatient PCP follow-up. PRN hydralazine. (4) FREDDY (obstructive sleep apnea) Is this a current diagnosis for this admission?: Yes Plan: History of FREDDY. CPAP dependent. Nocturnal CPAP. (5) Morbid obesity Is this a current diagnosis for this admission?: Yes Plan: Diet and lifestyle modification recommended. TSH WNL. Hemoglobin A1c 6.3. Lipid panel WNL. (6) COPD exacerbation Is this a current diagnosis for this admission?: Yes Plan: History of oxygen dependent COPD. Has home O2 CPAP. Plan as per #1. (7) Diabetes mellitus type 2 in obese Is this a current diagnosis for this admission?: Yes Plan: Controlled. Takes metformin 500 mg p.o. twice daily at home. Hemoglobin A1c 6.3. Hold metformin. Diabetic diet, basal, prandial, correctional insulin, Accu- Chek, hypoglycemic protocol. Adjust insulin dosage as needed. Restart metformin upon discharge. Outpatient PCP follow-up.
[2019-10-25] MEDS: SPIRONOLACTONE 25 MG TABLET PO SCH (14:15)
--- NOTE | 2019-10-25 18:27 | PDOC CONSULTATION ---
Consultation Consult Date: 10/25/19 Attending physician:: JARROD PANDEY Provider Consulted: MARIN ALDANA Consult reason:: Congestive heart failure History of Present Illness Admission Date/PCP: 10/23/19 18:06 DEEJAY FUCHS MD Patient complains of: QUEEN Raissa TRUONG is a 68 year old female past medical history of diastolic heart failure, COPD oxygen dependent, FREDDY CPAP dependent, hypertension, obesity, former smoker, presenting to ED complaining of worsening shortness of breath x1 week, associated with worsening lower extremity edema, abdominal distention, paroxysmal nocturnal dyspnea. Patient complains of dyspnea on minimal exertion and orthopnea. Denies any chest pain, fever, cough, headache, nausea, vomiting, abdominal pain, diarrhea, constipation or any urinary symptoms.Patient gives H/O of FREDDY. Patient denies any prior cardiac workup. History of Present Illness: QUEEN Raissa TRUONG is a 68 year old female Past Medical History Cardiac Medical History: Reports: Hypertension - ON MEDS Denies: Atrial Fibrillation, Congestive Heart Failure, Coronary Artery Disease, Myocardial Infarction, Hyperlipidema Pulmonary Medical History: Reports: Asthma, Bronchitis, Chronic Obstructive Pulmonary Disease (COPD) - HX OF INHALER, Pneumonia, Sleep Apnea Neurological Medical History: Denies: Seizures Endocrine Medical History: Denies: Diabetes Mellitus Type 1, Diabetes Mellitus Type 2 GI Medical History: Denies: Gastroesophageal Reflux Disease, Hepatitis, Hiatal Hernia Musculoskeltal Medical History: Denies: Arthritis Hematology: Reports: Anemia - HX OF Denies: Sickle Cell Disease Past Surgical History Past Surgical History: Denies: Amputation, Mastectomy, Pacemaker Social History Smoking Status: Never Smoker Electronic Cigarette use?: No Frequency of Alcohol Use: None Hx Recreational Drug Use: No Drugs: None Hx Prescription Drug Abuse: No - Advance Directive Resuscitation Status: Full Code Family History Family History: Reviewed & Not Pertinent Medication/Allergy Home Medications: Allopurinol [Zyloprim 100 mg Tablet] 100 mg PO DAILY 12/30/17 Aspirin [Ecotrin] 81 mg PO DAILY 12/30/17 Diltiazem HCl [Cardizem Cd 240 mg Capsule.cr] 240 mg PO QHS 12/30/17 Fluticasone/Salmeterol [Advair 250-50 Diskus 14 Dose/Diskus] 1 puff IH BID 12/30/17 Hydralazine HCl 50 mg PO TID 12/30/17 Loratadine 10 mg PO DAILY 12/30/17 Pantoprazole Sodium [Protonix] 40 mg PO DAILY 12/30/17 Potassium Chloride 20 meq PO DAILY 12/30/17 Brinzolamide/Brimonidine Tart [Simbrinza 1%-0.2% Eye Drops] 1 drop OU TID 10/04/18 Acetazolamide [Diamox 250 mg Tab] 250 mg PO DAILY 10/24/19 Albuterol Sulfate [Ventolin Hfa 8 gm Mdi (1 Mdi/ER Disp)] 2 puff IH Q4HP PRN 10/24/19 Losartan Potassium [Cozaar 100 mg Tablet] 100 mg PO DAILY 10/24/19 Magnesium 250 mg PO DAILY 10/24/19 Metformin HCl 500 mg PO DAILY 10/24/19 Montelukast Sodium [Singulair 10 mg Tablet] 10 mg PO DAILY 10/24/19 Tiotropium [place] [Spiriva Respimat] 2 puff IH DAILY 10/24/19 Allergies/Adverse Reactions: Sulfa (Sulfonamide Antibiotics) Allergy (Verified 10/23/19 19:34) n and v Review of Systems Constitutional: ABSENT: chills, fever(s), headache(s), weight gain, weight loss Eyes: ABSENT: visual disturbances Ears: ABSENT: hearing changes Cardiovascular: PRESENT: dyspnea on exertion, edema, orthropnea, palpitations. ABSENT: chest pain Respiratory: PRESENT: dyspnea. ABSENT: cough, hemoptysis Gastrointestinal: ABSENT: abdominal pain, constipation, diarrhea, hematemesis, hematochezia, nausea, vomiting Genitourinary: ABSENT: dysuria, hematuria Musculoskeletal: ABSENT: joint swelling Integumentary: ABSENT: rash, wounds Neurological: ABSENT: abnormal gait, abnormal speech, confusion, dizziness, focal weakness, syncope Psychiatric: ABSENT: anxiety, depression, homidical ideation, suicidal ideation Endocrine: ABSENT: cold intolerance, heat intolerance, polydipsia, polyuria Hematologic/Lymphatic: ABSENT: easy bleeding, easy bruising Physical Exam Vital Signs: Temp Pulse Resp BP Pulse Ox 97.9 F 68 18 136/81 H 95 10/25/19 12:26 10/25/19 14:00 10/25/19 13:53 10/25/19 12:26 10/25/19 13:53 Intake & Output 10/24/19 10/25/1920 06:59 06:59 06:59 Intake Total 1540 Output Total 1700 1750 Balance -1700 -210 Weight 149.9 kg 143.8 kg General appearance: PRESENT: no acute distress, well-developed, well-nourished Head exam: PRESENT: atraumatic, normocephalic Eye exam: PRESENT: conjunctiva pink, EOMI, PERRLA. ABSENT: scleral icterus Ear exam: PRESENT: normal external ear exam Mouth exam: PRESENT: moist, tongue midline Neck exam: PRESENT: JVD. ABSENT: carotid bruit, lymphadenopathy, thyromegaly Respiratory exam: PRESENT: crackles - Few Bisailar. ABSENT: rales, rhonchi, wheezes Cardiovascular exam: PRESENT: RRR, +S1, +S2. ABSENT: diastolic murmur, rubs, systolic murmur Pulses: PRESENT: normal dorsalis pedis pul Vascular exam: PRESENT: normal capillary refill GI/Abdominal exam: PRESENT: normal bowel sounds, soft. ABSENT: distended, guarding, mass, organolmegaly, rebound, tenderness Rectal exam: PRESENT: deferred Extremities exam: PRESENT: full ROM, +2 edema. ABSENT: calf tenderness, clubbing, pedal edema Neurological exam: PRESENT: alert, awake, oriented to person, oriented to place, oriented to time, oriented to situation, CN II-XII grossly intact. ABSENT: motor sensory deficit Psychiatric exam: PRESENT: appropriate affect, normal mood. ABSENT: homicidal ideation, suicidal ideation Skin exam: PRESENT: dry, intact, warm. ABSENT: cyanosis, rash Results Laboratory Results: 10/24/19 05:22 10/24/19 05:22 10/23/19 10/23/19 10/23/19 16:45 16:45 19:45 Creatine Kinase 108 CK-MB (CK-2) 1.72 Troponin I 0.029 0.031 NT-Pro-B Natriuret Pep 891 H EKG Comments: NSR, RBBB, APC Impressions: Chest X-Ray 10/23/19 16:32 IMPRESSION: Bibasilar consolidation - pleural effusion, left greater than right. Assessment & Plan - Diagnosis (1) Acute on chronic diastolic CHF (congestive heart failure) Is this a current diagnosis for this admission?: Yes (2) Right-sided congestive heart failure Qualifiers: Heart failure chronicity: chronic Qualified Code(s): I50.812 - Chronic right heart failure Is this a current diagnosis for this admission?: Yes (3) Diabetes mellitus type 2 in obese Is this a current diagnosis for this admission?: Yes (4) HTN (hypertension) Is this a current diagnosis for this admission?: Yes (5) Morbid obesity Is this a current diagnosis for this admission?: Yes (6) FREDDY (obstructive sleep apnea) Is this a current diagnosis for this admission?: Yes (7) Anasarca Is this a current diagnosis for this admission?: Yes - Notes Notes: Patient noted to have symptoms indicative of acute on chronic CHF. Patient certainly has diastolic CHF but on top of that seems to have right-sided CHF based on pulmonary hypertension, RV enlargement and sleep apnea syndrome and possibly obesity hypoventilation syndrome. At this point with aggressive Diuretic therapy. Agree with losartan therapy. May consider adding spironolactone if hypokalemia develops. Patient will immensely benefit from weight loss, proper treatment of underlying sleep apnea and also obesity. Blood-pressure goal is 130/85 less. Patient has other comorbid diagnosis but these are being well managed by the hospitals. Patient should follow-up soon after discharge for a sleep study, titration study and help with weight loss. This can be provided through my office. As usual I thank Dr Child is very much for the kind referral. - Time Time Spent: 30 to 50 Minutes Medications reviewed and adjusted accordingly: Yes
[2019-10-25] MEDS ORDERED: FUROSEMIDE INJ/PF 40 MG/4 ML SDV IV SCH (22:00)
[2019-10-25] MEDS: FUROSEMIDE INJ/PF 100 MG/10 ML SDV IV SCH (23:22)
[2019-10-26 05:14] LABS: CREATINE KINASE MB 1.44 ng/mL (<4.55); TROPONIN I 0.02 ng/mL
[2019-10-26] MEDS: METHYLPREDNISOLONE INJ 40 MG/1 ML SDV IV SCH ×2 (06:15→13:48)
[2019-10-26] MEDS: HEPARIN SOD (PORCINE) 5,000 UNIT/ML 1 ML VIAL SUBCUT SCH ×2 (06:16→13:48)
[2019-10-26] MEDS: IPRATROPIUM/ALBUTEROL 0.5-2.5 MG/3 ML AMPUL NEB SCH ×2 (08:29→14:09)
[2019-10-26] MEDS: LOSARTAN POTASSIUM 50 MG TABLET PO SCH (09:27)
[2019-10-26] MEDS: MONTELUKAST SODIUM 10 MG TABLET PO SCH (09:27)
[2019-10-26] MEDS: AZITHROMYCIN 250 MG TABLET PO SCH (09:27)
[2019-10-26] MEDS: FUROSEMIDE INJ/PF 100 MG/10 ML SDV IV SCH (09:28)
[2019-10-26] MEDS: FAMOTIDINE 20 MG TABLET PO SCH (09:28)
[2019-10-26] MEDS: DOCUSATE SODIUM 100 MG CAPSULE PO SCH (09:28)
[2019-10-26] MEDS: PANTOPRAZOLE SODIUM 40 MG TABLET.DR PO SCH (09:28)
[2019-10-26] MEDS: ASPIRIN 81 MG TABLET, ENT COATED PO SCH (09:28)
[2019-10-26] MEDS: SPIRONOLACTONE 25 MG TABLET PO SCH (09:28)
[2019-10-26] MEDS: ALLOPURINOL 100 MG TABLET PO SCH (09:28)
[2019-10-26] MEDS: ACETAZOLAMIDE 250 MG TABLET PO SCH (09:32)
[2019-10-26] MEDS: FLUTICASONE/UMECLIDIN/VILANTER 100-62.5-25 MCG/DOSE IH SCH (09:36)
[2019-10-26] MEDS ORDERED: METOPROLOL TARTRATE 25 MG TABLET PO SCH (10:00)
[2019-10-26 10:13] LABS: CREATINE KINASE MB 1.51 ng/mL (<4.55); TROPONIN I 0.018 ng/mL
[2019-10-26 15:28] VITALS: BP 133/59
[2019-10-26 17:01] LABS: CREATINE KINASE MB 1.23 ng/mL (<4.55); TROPONIN I 0.016 ng/mL
--- NOTE | 2019-10-26 17:23 | PDOC DISCHARGE SUMMARY ---
Impression - Admit/DC Date/PCP Admission Date/Primary Care Provider: 10/23/19 18:06 DEEJAY FUCHS MD Discharge Date: 10/26/19 - Discharge Diagnosis (1) Acute respiratory failure with hypoxia Is this a current diagnosis for this admission?: Yes (2) Acute CHF (congestive heart failure) Is this a current diagnosis for this admission?: Yes (3) HTN (hypertension) Is this a current diagnosis for this admission?: Yes (4) FREDDY (obstructive sleep apnea) Is this a current diagnosis for this admission?: Yes (5) Morbid obesity Is this a current diagnosis for this admission?: Yes (6) COPD exacerbation Is this a current diagnosis for this admission?: Yes (7) Diabetes mellitus type 2 in obese Is this a current diagnosis for this admission?: Yes - Additional Information Resuscitation Status: Full Code Discharge Diet: Cardiac, Diabetic Discharge Activity: Activity As Tolerated Referrals: CLAUDIO AQUINO MD [COMMUNITY BASED STAFF] - 11/02/19 1:30 pm MARIN JAEGER MD [ACTIVE STAFF] - (PROVIDER'S OFFICE IS CLOSED UNTIL AFTER HOLIDAY.) Prescriptions: Spironolactone [Aldactone 25 mg Tablet] 25 mg PO DAILY 30 Days #30 tablet Furosemide [Lasix 40 mg Tablet] 60 mg PO BID 30 Days #90 tablet Metoprolol Tartrate [Lopressor 25 mg Tablet] 25 mg PO Q12 30 Days #60 tab Home Medications: Allopurinol [Zyloprim 100 mg Tablet] 100 mg PO DAILY 12/30/17 Aspirin [Ecotrin] 81 mg PO DAILY 12/30/17 Fluticasone/Salmeterol [Advair 250-50 Diskus 14 Dose/Diskus] 1 puff IH BID 12/30/17 Loratadine 10 mg PO DAILY 12/30/17 Pantoprazole Sodium [Protonix] 40 mg PO DAILY 12/30/17 Potassium Chloride 20 meq PO DAILY 12/30/17 Brinzolamide/Brimonidine Tart [Simbrinza 1%-0.2% Eye Drops] 1 drop OU TID 10/04/18 Acetazolamide [Diamox 250 mg Tab] 250 mg PO DAILY 10/24/19 Albuterol Sulfate [Ventolin Hfa 8 gm Mdi (1 Mdi/ER Disp)] 2 puff IH Q4HP PRN 10/24/19 Losartan Potassium [Cozaar 100 mg Tablet] 100 mg PO DAILY 10/24/19 Magnesium 250 mg PO DAILY 10/24/19 Metformin HCl 500 mg PO DAILY 10/24/19 Montelukast Sodium [Singulair 10 mg Tablet] 10 mg PO DAILY 10/24/19 Tiotropium [place] [Spiriva Respimat] 2 puff IH DAILY 10/24/19 Furosemide [Lasix 40 mg Tablet] 60 mg PO BID 30 Days #90 tablet 10/26/19 Metoprolol Tartrate [Lopressor 25 mg Tablet] 25 mg PO Q12 30 Days #60 tab 10/26/19 Spironolactone [Aldactone 25 mg Tablet] 25 mg PO DAILY 30 Days #30 tablet 10/26/19 History of Present Illiness History of Present Illness: QUEEN Raissa TRUONG is a 68 year old female past medical history of diastolic heart failure, COPD oxygen dependent, FREDDY CPAP dependent, hypertension, obesity, former smoker, presenting to ED complaining of worsening shortness of breath x1 week, associated with worsening lower extremity edema, abdominal distention, pillow orthopnea, paroxysmal nocturnal dyspnea. Denies any chest pain, fever, cough, headache, nausea, vomiting, abdominal pain, diarrhea, constipation or any urinary symptoms. Hospital Course Hospital Course: (1) Acute respiratory failure with hypoxia Resolved. Back to baseline. SPO2 WNL on 2 L NC. Ambulatory. Denied any dyspnea on exertion. Most likely due to COPD exacerbation complicated by underlying acute diastolic CHF. Was admitted to telemetry, duo nebs, IV steroids, empiric antibiotics, pulmonary toileting, LMA, LABA, ICS, incentive spirometry, flutter valve. (2) Acute CHF (congestive heart failure) History of diastolic heart failure. Acutely exacerbated. proBNP elevated. Denied any chest pain. 10/24/2019. 2D echo. Left ventricular ejection fraction normal. Grade 2/4 mild to moderate diastolic dysfunction. RSVP 50 to 60 mmHg. 01/04/2019. 2D echo left ventricular hypertrophy. Ejection fraction 75%. Left ventricular diastolic dysfunction. RSVP 50 mmHg. Was admitted to telemetry, volume restriction, daily weight started on ARB and beta-blockers uptitrate as tolerated. Started on IV diuretics and switch to p.o. upon discharge. Started on Spironolactone. Cardiology consulted. Recommendation is medical management and follow-up as outpatient with cardiology. Patient advised to follow-up with Dr. Jaeger on 10/27/2019. (3) HTN (hypertension) Improved. Takes diltiazem , losartan and hydralazine at home. Diltiazem switched with metoprolol. Restarted on losartan. Started on Aldactone, furosemide and metoprolol. Advised to follow-up with PCP for adjustment of BP meds. Patient voiced understanding. (4) FREDDY (obstructive sleep apnea) History of FREDDY. CPAP dependent. Was a started on nocturnal CPAP. Advised to follow-up with PCP and upper shaper. (5) Morbid obesity Diet and lifestyle modification recommended. TSH WNL. Hemoglobin A1c 6.3. Lipid panel WNL. (6) COPD exacerbation History of oxygen dependent COPD. Has home O2 CPAP. Plan as per #1. (7) Diabetes mellitus type 2 in obese Controlled. Takes metformin 500 mg p.o. twice daily at home. Hemoglobin A1c 6.3. Was started on diabetic diet, basal, prandial, correctional insulin, Accu-Chek, hypoglycemic protocol. Adjust insulin dosage as needed. Advised to resume metformin upon discharge and follow-up with PCP. Physical Exam Vital Signs: Temp Pulse Resp BP Pulse Ox 98.1 F 82 16 150/100 H 96 10/26/19 14:37 10/26/19 14:37 10/26/19 14:37 10/26/19 14:37 10/26/19 14:37 Intake & Output 10/25/19 10/26/19 10/27/19 06:59 06:59 06:59 Intake Total 1540 1490 480 Output Total 1750 1600 Balance -210 1490 -1120 Weight 143.8 kg 143.2 kg General appearance: PRESENT: no acute distress, morbidly obese, well-developed, well-nourished Head exam: PRESENT: atraumatic, normocephalic Respiratory exam: PRESENT: clear to auscultation [place]. ABSENT: rales, rhonchi, wheezes Cardiovascular exam: PRESENT: RRR. ABSENT: diastolic murmur, rubs, systolic murmur Pulses: PRESENT: normal dorsalis pedis pul GI/Abdominal exam: PRESENT: normal bowel sounds, soft. ABSENT: distended, guarding, mass, organolmegaly, rebound, tenderness Neurological exam: PRESENT: alert, awake, oriented to person, oriented to place, oriented to time, oriented to situation, CN II-XII grossly intact. ABSENT: motor sensory deficit Results Laboratory Results: WBC 5.8 10^3/uL (4.0-10.5) 10/24/19 05:22 RBC 4.63 10^6/uL (3.72-5.28) 10/24/19 05:22 Hgb 12.0 g/dL (12.0-15.5) 10/24/19 05:22 Hct 39.0 % (36.0-47.0) 10/24/19 05:22 MCV 84 fl (80-97) 10/24/19 05:22 MCH 25.8 pg (27.0-33.4) L 10/24/19 05:22 MCHC 30.7 g/dL (32.0-36.0) L 10/24/19 05:22 RDW 18.5 % (11.5-14.0) H 10/24/19 05:22 Plt Count 211 10^3/uL (150-450) 10/24/19 05:22 Lymph % (Auto) Not Reportable 10/24/19 05:22 [place] % (Auto) Not Reportable 10/24/19 05:22 Eos % (Auto) Not Reportable 10/24/19 05:22 Baso % (Auto) Not Reportable 10/24/19 05:22 Absolute Neuts (auto) Not Reportable 10/24/19 05:22 Absolute Lymphs (auto) Not Reportable 10/24/19 05:22 Absolute Monos (auto) Not Reportable 10/24/19 05:22 Absolute Eos (auto) Not Reportable 10/24/19 05:22 Absolute Basos (auto) Not Reportable 10/24/19 05:22 Total Counted 100 10/24/19 05:22 Seg Neutrophils % Not Reportable 10/24/19 05:22 Seg Neuts % (Manual) 86 % (42-78) H 10/24/19 05:22 Band Neutrophils % 1 % (3-5) L 10/24/19 05:22 Lymphocytes % (Manual) 11 % (13-45) L 10/24/19 05:22 Monocytes % (Manual) 2 % (3-13) L 10/24/19 05:22 Eosinophils % (Manual) 0 % (0-6) 10/24/19 05:22 Basophils % (Manual) 0 % (0-2) 10/24/19 05:22 Abs Neuts (Manual) 5.0 10^3/uL (1.7-8.2) 10/24/19 05:22 Abs Lymphs (Manual) 0.6 10^3/uL (0.5-4.7) 10/24/19 05:22 Abs Monocytes (Manual) 0.1 10^3/uL (0.1-1.4) 10/24/19 05:22 Absolute Eos (Manual) 0.0 10^3/uL (0.0-0.6) 10/24/19 05:22 Abs Basophils (Manual) 0.0 10^3/uL (0.0-0.2) 10/24/19 05:22 Platelet Comment ADEQUATE 10/24/19 05:22 Polychromasia 1+ 10/24/19 05:22 Hypochromasia 1+ 10/24/19 05:22 Anisocytosis 1+ 10/24/19 05:22 Sodium 143.8 mmol/L (137-145) 10/24/19 05:22 Potassium 4.5 mmol/L (3.6-5.0) 10/24/19 05:22 Chloride 108 mmol/L (98-107) H 10/24/19 05:22 Carbon Dioxide 27 mmol/L (22-30) 10/24/19 05:22 Anion Gap 9 (5-19) 10/24/19 05:22 BUN 18 mg/dL (7-20) 10/24/19 05:22 Creatinine 1.07 mg/dL (0.52-1.25) 10/24/19 05:22 Est GFR ( Amer) > 60 (>60) 10/24/19 05:22 Est GFR (MDRD) Non-Af 51 (>60) L 10/24/19 05:22 Glucose 133 mg/dL (75-110) H 10/24/19 05:22 Hemoglobin A1c % 6.3 % (4.7-6.0) H 10/24/19 05:22 Calcium 9.8 mg/dL (8.4-10.2) 10/24/19 05:22 Magnesium 2.3 mg/dL (1.6-2.3) 10/24/19 05:22 Total Bilirubin 0.5 mg/dL (0.2-1.3) 10/24/19 05:22 Direct Bilirubin 0.2 mg/dL (0.0-0.4) 10/24/19 05:22 Neonat Total Bilirubin Not Reportable 10/24/19 05:22 Neonat Direct Bilirubin Not Reportable 10/24/19 05:22 Neonat Indirect Bili Not Reportable 10/24/19 05:22 AST 27 U/L (14-36) 10/24/19 05:22 ALT 38 U/L (<35) 10/24/19 05:22 Alkaline Phosphatase 75 U/L (38-126) 10/24/19 05:22 Creatine Kinase 64 U/L (30-135) 10/26/19 15:50 CK-MB (CK-2) 1.23 ng/mL (<4.55) 10/26/19 15:50 Troponin I 0.016 ng/mL 10/26/19 15:50 NT-Pro-B Natriuret Pep 891 pg/mL (<125) H 10/23/19 16:45 Total Protein 7.1 g/dL (6.3-8.2) 10/24/19 05:22 Albumin 3.8 g/dL (3.5-5.0) 10/24/19 05:22 Triglycerides 40 mg/dL (<150) 10/24/19 05:22 Cholesterol 130.52 mg/dL (0-200) 10/24/19 05:22 LDL Cholesterol Direct 62 mg/dL (<100) 10/24/19 05:22 VLDL Cholesterol 8.0 mg/dL (10-31) L 10/24/19 05:22 HDL Cholesterol 46 mg/dL (>40) 10/24/19 05:22 TSH 1.46 uIU/mL (0.47-4.68) 10/23/19 16:45 Free T4 0.92 ng/dL (0.78-2.19) 10/23/19 16:45 Urine Color STRAW 10/23/19 19:00 Urine Appearance CLEAR 10/23/19 19:00 Urine pH 7.0 (5.0-9.0) 10/23/19 19:00 Ur Specific [place] 1.009 10/23/19 19:00 Urine Protein 30 mg/dL (NEGATIVE) H 10/23/19 19:00 Urine Glucose (UA) NEGATIVE mg/dL (NEGATIVE) 10/23/19 19:00 Urine Ketones NEGATIVE mg/dL (NEGATIVE) 10/23/19 19:00 Urine Blood NEGATIVE (NEGATIVE) 10/23/19 19:00 Urine Nitrite NEGATIVE (NEGATIVE) 10/23/19 19:00 Urine Bilirubin NEGATIVE (NEGATIVE) 10/23/19 19:00 Urine Urobilinogen NEGATIVE mg/dL (<2.0) 10/23/19 19:00 Ur Leukocyte Esterase SMALL (NEGATIVE) H 10/23/19 19:00 Urine WBC (Auto) 3 /HPF 10/23/19 19:00 Urine RBC (Auto) 2 /HPF 10/23/19 19:00 Urine Bacteria (Auto) TRACE /HPF 10/23/19 19:00 Squamous Epi Cells Auto 1 /HPF 10/23/19 19:00 Urine Mucus (Auto) RARE /LPF 10/23/19 19:00 Urine Ascorbic Acid NEGATIVE (NEGATIVE) 10/23/19 19:00 10/23/19 10/23/19 10/26/19 16:45 19:45 03:40 CK-MB (CK-2) 1.72 1.44 Troponin I 0.029 0.031 0.020 NT-Pro-B Natriuret Pep 891 H 10/26/19 10/26/19 09:16 15:50 CK-MB (CK-2) 1.51 1.23 Troponin I 0.018 0.016 NT-Pro-B Natriuret Pep Impressions: Chest X-Ray 10/23/19 16:32 IMPRESSION: Bibasilar consolidation - pleural effusion, left greater than right. Plan Time Spent: Greater than 30 Minutes Stroke Is this a Stroke Patient?: No Acute Heart Failure - Is this a Heart Failure Patient?: No
== END 2019-10-26 18:45 | disposition home or self-care (01) | DRG 190 ==
LOC: ER 16:14 → EH 18:06 → 4S 19:46
PROVIDERS: ADMIT Internal Medicine; ATTEND Internal Medicine
DX: J44.1 Chronic obstructive pulmonary disease with (acute) exacerbation (principal); J96.01 Acute respiratory failure with hypoxia; I50.33 Acute on chronic diastolic (congestive) heart failure; Z68.43 Body mass index [BMI] 50.0-59.9, adult; I27.29 Other secondary pulmonary hypertension; I11.0 Hypertensive heart disease with heart failure; Z99.81 Dependence on supplemental oxygen; G47.33 Obstructive sleep apnea (adult) (pediatric); E66.01 Morbid (severe) obesity due to excess calories; E11.9 Type 2 diabetes mellitus without complications; Z79.84 Long term (current) use of oral hypoglycemic drugs; Z79.82 Long term (current) use of aspirin; Z87.891 Personal history of nicotine dependence; Z88.2 Allergy status to sulfonamides
CPT/HCPCS: 36415; 71045; 80053; 80061; 81001; 82550; 82553; 83036; 83735; 83880; 84439; 84443; 84484; 85025; 87040; 93005; 93010; 93306; 94640; 94660; 99285; G0378; J0360; J1644; J1940; J2920; J3490; J7512; J7620

== ENCOUNTER → 2020-05-23 | Outpatient (CLI) | payer MEDICARE, MEDICAID ==
[2020-05-23 11:57] LABS: ABSOLUTE EOSINOPHILS # (AUTO) 0.1 10^3/uL (0.0-0.6); ABSOLUTE LYMPHOCYTES (AUTO) 1.5 10^3/uL (0.5-4.7); ABSOLUTE MONOCYTES (AUTO) 0.4 10^3/uL (0.1-1.4); ABSOLUTE NEUT (AUTO) 2.5 10^3/uL (1.7-8.2); EOSINOPHILS % (AUTO) 1.6 % (0-6); HEMOGLOBIN 13.3 g/dL (12.0-15.5); LYMPHOCYTES % (AUTO) 32.9 % (13-45); MEAN CORPUSCULAR HEMOGLOBIN 26.8 pg (27.0-33.4); MEAN CORPUSCULAR HGB CONC 31.7 g/dL (32.0-36.0); MEAN CORPUSCULAR VOLUME 85 fl (80-97); MONOCYTES % (AUTO) 9.7 % (3-13); PLATELET COUNT 193 10^3/uL (150-450); RED BLOOD COUNT 4.96 10^6/uL (3.72-5.28); RED CELL DISTRIBUTION WIDTH 15.1 % (11.5-14.0); SEGMENTED NEUTROPHILS % (AUTO) 54.8 % (42-78); TOTAL CELLS COUNTED % (AUTO) 100 %; WHITE BLOOD COUNT 4.6 10^3/uL (4.0-10.5)
[2020-05-23 12:00] LABS: APPEARANCE,URINE CLEAR; BILIRUBIN,URINE NEGATIVE (NEGATIVE); COLOR,URINE YELLOW; GLUCOSE, URINE NEGATIVE (NEGATIVE); KETONES,URINE NEGATIVE (NEGATIVE); LEUKOCYTE ESTERASE,URINE TRACE (NEGATIVE); NITRITE,URINE NEGATIVE (NEGATIVE); PROTEIN,URINE NEGATIVE (NEGATIVE); URINE SPECIFIC GRAVITY 1.014; UROBILINOGEN,URINE NEGATIVE mg/dL (<2.0)
[2020-05-23 12:16] LABS: UR PRO/CREAT RATIO RESULT 0.2 mg/mg (0.0-0.2); URINE CREATININE 104.3 mg/dL (15-278); URINE PROTEIN 20.4 mg/dL (<12)
[2020-05-23 12:26] LABS: ALBUMIN 4.1 g/dL (3.5-5.0); ALKALINE PHOSPHATASE 87 U/L (38-126); ANION GAP 5 (5-19); ASPARTATE AMINO TRANSFERASE 16 U/L (14-36); BILIRUBIN,TOTAL 0.6 mg/dL (0.2-1.3); BLOOD UREA NITROGEN 29 mg/dL (7-20); CARBON DIOXIDE 27 mmol/L (22-30); CHLORIDE 109 mmol/L (98-107); GLUCOSE 115 mg/dL (75-110); POTASSIUM 4.2 mmol/L (3.6-5.0); TOTAL PROTEIN 7.5 g/dL (6.3-8.2)
== END ==
LOC: OD 10:33
PROVIDERS: ATTEND Internal Medicine Nephrology
DX: I11.0 Hypertensive heart disease with heart failure (principal); I50.9 Heart failure, unspecified; R80.9 Proteinuria, unspecified; G47.30 Sleep apnea, unspecified; E66.01 Morbid (severe) obesity due to excess calories
CPT/HCPCS: 36415; 80053; 81001; 82570; 83735; 84156; 85025

== ENCOUNTER 2020-06-07 09:39 | Day surgery (SDC) | payer MEDICARE, MEDICAID ==
[~2020-06-07 09:39] MED LIST changes: +TRYPAN BLUE 0.06 % OPH SOLN 0.5 ML DISP.SYRIN ONE
[2020-06-07] MEDS ORDERED: ONDANSETRON HCL INJ/PF 4 MG/2 ML SDV ONE (10:17)
[2020-06-07] MEDS ORDERED: FENTANYL CITRATE INJ/PF 100 MCG/2 ML AMPUL ONE (10:18)
[2020-06-07] MEDS ORDERED: MIDAZOLAM 2 MG/2 ML INJ ONE (10:18)
[2020-06-07] MEDS: TETRACAINE HCL 0.5% OPH SOLN 4 ML OD PRN ×4 (10:58→11:30)
[2020-06-07] MEDS: TROPICAMIDE 1% OPH SOLN 15 ML OD PRN ×3 (10:58→11:20)
[2020-06-07] MEDS: BESIFLOXACIN HCL 0.6% OPH SUSP 5 ML BOTTLE OD PRN ×3 (10:59→12:00)
[2020-06-07] MEDS: CYCLOPENTOLATE 0.2%/PHENYLEPHRINE 1% OPH SOLN 2 ML OD PRN ×3 (10:59→11:21)
[2020-06-07] MEDS: CHONDR SU A NA/HYALUR INTRAOC KIT (SURGICARE) ONE ×2 (11:49)
[2020-06-07] MEDS: LIDOCAINE 1%/PHENYLEPHRINE 1.5% 0.8 ML SYRINGE ONE ×2 (11:49)
[2020-06-07] MEDS: EPINEPHRINE INJ/PF 1 MG/1 ML AMPULE ONE ×2 (11:49)
[2020-06-07] MEDS: DORZOLAMIDE HCL 2%/TIMOLOL MALEAT 0.5% OPH SOLN 10 ML OD PRN ×2 (12:00)
[2020-06-07] MEDS ORDERED: METOPROLOL TARTRATE PF/INJ 5 MG/5 ML SDV IV ONE (12:19)
--- NOTE | 2020-06-07 12:55 | Operative Report ---
Operative Report-[facility] Operative Report: DATE OF SURGERY: 06/07/2020 PREOPERATIVE DIAGNOSIS: Age related other cataract, right eye POSTOPERATIVE DIAGNOSIS: Age-related other cataract, right eye OPERATION: Complex cataract extraction with insertion of an IOL of the right eye and use of trypan blue dye Intraocular Lens Model: [17.5 sn60wf] She underwent surgery for difficulty being able to read SURGEON: Samuel Lloyd MD ANESTHESIA: Topical PROCEDURE: After obtaining appropriate consent, the patient's right eye was prepped and draped in a sterile fashion as well as the surgeon in the sterile manner and cataract surgery was started. First a paracentesis blade was used to make a side-port incision. Viscoelastic was used to inflate the anterior chamber. Next a 2.4 mm incision was made with a 2.4 mm blade, clear corneal temporarily. The anterior capsule was stained with trypan blue dye due to poor visualization of the red reflex. A continuous capsulorrhexis was made using a cystotome and Utrata forceps. Following this hydrodissection was carried out to make the hugo fully loose and mobile and it was rotated. Following this, a divide and conquer technique was used to phacoemulsify the hugo. The remaining cortex was removed with an irrigation/aspiration. Provisc was instilled into the capsular bag to inflate the bag. The intraocular lens was placed. The remaining viscoelastic material was removed with irrigation/aspiration. Following this, the incision was found to be watertight. Besivance and Cosopt was instilled into the eye and a protective shield was placed over the eye. The patient was reurned to the postoperative recovery in a stable condition.
--- NOTE | 2020-06-07 15:28 | EKG REPORT ---
SEVERITY:- ABNORMAL ECG - ATRIAL FIBRILLATION, V-RATE 56-94 VENTRICULAR PREMATURE COMPLEX IVCD, CONSIDER ATYPICAL RBBB : Confirmed by: Dusty Reed MD 07-Jun-2020 15:28:01
== END 2020-06-07 13:47 | disposition home or self-care (01) ==
LOC: SC 09:39
PROVIDERS: ATTEND Internal Medicine
DX: H25.89 Other age-related cataract (principal); H40.1132 Primary open-angle glaucoma, bilateral, moderate stage; H47.093 Other disorders of optic nerve, not elsewhere classified, bilateral; H20.022 Recurrent acute iridocyclitis, left eye; Z96.1 Presence of intraocular lens; Z99.81 Dependence on supplemental oxygen; I69.354 Hemiplegia and hemiparesis following cerebral infarction affecting left non-dominant side; I13.0 Hypertensive heart and chronic kidney disease with heart failure and stage 1 through stage 4 chronic kidney disease, or unspecified chronic kidney disease; N18.3 Chronic kidney disease, stage 3 (moderate); I50.9 Heart failure, unspecified; J44.9 Chronic obstructive pulmonary disease, unspecified; Z88.2 Allergy status to sulfonamides; Z87.891 Personal history of nicotine dependence
CPT/HCPCS: 66982; 93005; 93010; V2632; J2250; J3490 ×5; A9270; J0171; J3010; J2405

== ENCOUNTER → 2020-08-30 | Outpatient (CLI) | payer MEDICARE, MEDICAID ==
[2020-08-30 12:31] LABS: ALBUMIN 3.9 g/dL (3.5-5.0); ALKALINE PHOSPHATASE 85 U/L (38-126); ANION GAP 9 (5-19); ASPARTATE AMINO TRANSFERASE 17 U/L (14-36); BILIRUBIN,DIRECT 0.1 mg/dL (0.0-0.4); BILIRUBIN,TOTAL 0.6 mg/dL (0.2-1.3); BLOOD UREA NITROGEN 22 mg/dL (7-20); CALCIUM 9.7 mg/dL (8.4-10.2); CARBON DIOXIDE 23 mmol/L (22-30); CHLORIDE 111 mmol/L (98-107); CHOLESTEROL 144.26 mg/dL (0-200); GLUCOSE 132 mg/dL (75-110); POTASSIUM 4.2 mmol/L (3.6-5.0); TOTAL PROTEIN 7.1 g/dL (6.3-8.2); TRIGLYCERIDES 124 mg/dL (<150)
[2020-08-30 12:42] LABS: DIRECT LDL 71 mg/dL (<100)
[2020-08-31 14:37] LABS: CREATININE URINE 244.3 mg/dL (Not Estab.); MICROALBUMIN URINE 114.8 ug/mL (Not Estab.)
== END ==
LOC: OD 11:01
PROVIDERS: ATTEND Family Medicine
DX: I10 Essential (primary) hypertension (principal); E11.9 Type 2 diabetes mellitus without complications; E07.9 Disorder of thyroid, unspecified
CPT/HCPCS: 36415; 80053; 80061; 82043; 82570; 83036; 84443